=== PATIENT | male | born 1955 | race Caucasian/White ===

== ENCOUNTER 2016-08-13 16:02 | Emergency (ER) | payer OTHER ==
[~2016-08-13] VITALS: Ht 180.3 cm; Wt 113.0 kg
[~2016-08-13 16:02] MED LIST: ASPEC81 PO; ATEN-173 PO; DRV65 PO; FLX10 PO; HYDC25 PO; SERT-234 PO
[2016-08-13 16:06] VITALS: TEMP 36.8
[2016-08-13 17:00] VITALS: Ht 180.3 cm; Wt 113.0 kg
[2016-08-13 17:09] LABS: BASO % 0.5 %; BASO ABS # 0.04 K/uL (0-0.2); COMPLETE YES; EOS % 1.8 %; HEMATOCRIT 41.3 % (42-52); IG% 0.3 %; LYMPH % 17.4 %; LYMPH ABS # 1.37 K/uL (1.2-3.4); MEAN CELL VOLUME 82.3 fL (80-100); MEAN CORPUSCULAR HEMOGLOBIN 28.3 pg (25-34); MEAN CORPUSCULAR HGB CONC 34.4 g/dl (32-36); MEAN PLATELET VOLUME 10.1 fL (7.4-10.4); MONO % 6.2 %; NEUT % 73.8 %; PLATELET COUNT 247 K/uL (130-400); RED BLOOD COUNT 5.02 M/uL (4.7-6.1); WHITE BLOOD COUNT 7.86 K/uL (4.8-10.8)
[2016-08-13 17:11] VITALS: O2SAT 95
[2016-08-13 17:18] LABS: PROTHROMBIN TIME (PATIENT) 11.2 SECONDS (9.0-12.0)
[2016-08-13 17:25] LABS: URINE APPEARANCE CLEAR (CLEAR); URINE BILIRUBIN NEG (NEG); URINE COLOR YELLOW; URINE NITRITE NEG (NEG); URINE SPECIFIC GRAVITY 1.021 (1.000-1.030); UROBILINOGEN NEG (NEG)
[2016-08-13 17:26] LABS: ALT/SGPT 36 U/L (12-78); AST/SGOT 18 U/L (15-37); BLOOD UREA NITROGEN 17 mg/dl (7-18); BUN/CREATININE RATIO 14.5 (10-20); CALCIUM 8.8 mg/dl (8.5-10.1); CARBON DIOXIDE 30 mmol/L (21-32); CHLORIDE 101 mmol/L (98-107); GLUCOSE 238 mg/dl (70-99); POTASSIUM 3.5 mmol/L (3.5-5.1); SODIUM 139 mmol/L (136-145)
[2016-08-13 17:28] LABS: MANUAL MICROSCOPIC REQUIRED? NO; REVIEW REQ? NO
[2016-08-13] MEDS ORDERED: SODIUM CHLORIDE 0.9% 1000ML 1,000 ML IV STA (17:35)
[2016-08-13 17:38] LABS: ALKALINE PHOSPHATASE 110 U/L (45-117)
--- NOTE | 2016-08-13 18:06 | DIAGNOSTIC IMAGING REPORT ---
CT SCAN OF THE ABDOMEN AND PELVIS WITHOUT CONTRAST CLINICAL HISTORY: right flank pain COMPARISON STUDY: No previous studies for comparison. TECHNIQUE: CT scan of the abdomen and pelvis was performed from the lung bases to the proximal femurs. Images are reviewed in the axial, sagittal, and coronal planes. IV contrast was not administered for this examination. CT DOSE: 1704.03 mGy.cm FINDINGS: Lower chest: The heart is normal in size and configuration, without pericardial effusion. The lung bases and pleural spaces are clear. Liver: There is subtle hypodensity within the medial segment left lobe of the liver, possibly representing focal fat. Gallbladder: Not visualized and presumed surgically absent Spleen: Normal in size and attenuation. Pancreas: Unremarkable. Adrenal glands: Unremarkable. Kidneys: There is a 13 mm exophytic right renal cyst. There is no hydronephrosis. No renal or ureteral calculi are visualized. There is mild bilateral perinephric stranding. Bowel: There are no transition zones indicate bowel obstruction. The appendix is not visualized. There are no findings to indicate acute appendicitis. There is no evidence of acute diverticulitis. Peritoneum: There is no intraperitoneal free air or abdominal ascites. There is small fat-containing ventral hernias. Vasculature: The abdominal aorta is normal in course and caliber. Adenopathy: None. Pelvic viscera: The bladder, and pelvic viscera are unremarkable. Skeletal structures: No destructive osseous lesions are seen. IMPRESSION: 1. No renal, ureteral, or bladder calculi identified 2. No evidence of bowel obstruction. No evidence of free air 3. No evidence of acute diverticulitis 4. No evidence of acute appendicitis 5. Small fat-containing inguinal hernias 6. Very subtle diminished attenuation within the medial segment of the left lobe of the liver, possibly secondary to focal fat Electronically signed by: Jordan Mensah M.D. 08/13/2016 6:05 PM Dictated Date/Time: 08/13/2016 6:00 PM
[2016-08-13] MEDS ORDERED: CIPR-255 PO (18:10)
[2016-08-13] MEDS ORDERED: METF1TAB53 PO (18:10)
[2016-08-13] MEDS ORDERED: ATEN50TA8 PO (18:10)
[2016-08-13] MEDS ORDERED: CHOL2000 PO (18:10)
[2016-08-13] MEDS ORDERED: KRIL1CAP24 PO (18:10)
[2016-08-13] MEDS ORDERED: VITACAP37 PO (18:10)
[2016-08-13] MEDS ORDERED: ATOR-24 PO (18:10)
[2016-08-13] MEDS ORDERED: ALFU10TA2 PO (18:10)
[2016-08-13] MEDS ORDERED: HYDR25TA4 PO (18:11)
[2016-08-13] MEDS ORDERED: SERT-234 PO (18:11)
[2016-08-13 19:00] VITALS: PULSE 66; O2SAT 95
[2016-08-13 19:36] VITALS: BP 169/93
--- NOTE | 2016-08-13 21:50 | EMERGENCY ROOM VISIT NOTE ---
History Report prepared by Evelyne: Sid Yost Under the Supervision of: Dr. Daniel Vora M.D. First contact with patient: 16:20 Chief Complaint: HYPERGLYCEMIA Stated Complaint: SUGAR GLUCOSE IS HIGH History of Present Illness The patient is a 61 year old male who presents to the Emergency Room with complaints of hyperglycemia starting about a week ago. He also complains of diabetes. His blood sugar level had been in the 200s to 300s yesterday. The patient has been feeling fatigued and tired for the past week. He has been having increased sweatiness recently but denies any fevers or chills. He also complains of increased frequency, and increased urgency. He reports some intermittent, mild, right flank pain starting about 3 days ago. The patient had been setting some stones when he had an onset of his pain. He has a history of SI joint problems. He was evaluated by his PCP yesterday who placed him on Cipro. He had a urinalysis yesterday which showed some microscopic hematuria. He has an enlarged prostate but denies any issues. He notes actually feeling better today than previously. Pt denies LOC, headache, visual changes, neck pain, chest pain, breathing difficulties, pain with deep breathing, nausea, vomiting, melena, hematochezia, numbness, weakness, lymphadenopathy, rash, or other complaints. Source of History: patient Onset: about a week ago Position: other (global) Symptom Intensity: 200s-300s Quality: other (hyperglycemia) Associated Symptoms: + urinary symptoms Review of Systems See HPI for pertinent positives and negatives. A total of ten systems were reviewed and were otherwise negative. Past Medical & Surgical Medical Problems: (1) Diabetes (2) Hypertension Surgical Problems: (1) History of cholecystectomy Family History Cancer Gallbladder disease Hypertension Lung disease Social History Smoking Status: Never Smoker Marital Status: Occupation Status: retired Current/Historical Medications Scheduled Alfuzosin Hcl (Uroxatral), 10 MG PO DAILY Atenolol (Tenormin), 50 MG PO DAILY Atorvastatin (Lipitor), 40 MG PO DAILY Cholecalciferol (Vitamin D3), 3 CAP PO DAILY Ciprofloxacin Hcl (Cipro), 500 MG PO BID Hydrochlorothiazide (Hctz), 25 MG PO DAILY Krill Oil (Krill Oil 500 mg), 1 CAP PO DAILY Metformin Hcl (Glucophage Ext Rel), 1,000 MG PO BID Sertraline (Zoloft), 100 MG PO DAILY Vitamin E (E-400), 1 TAB PO DAILY Allergies Coded Allergies: Lisinopril (Unverified Allergy, Severe, ANGIOEDEMA, 08/13/16) Sulfa Drugs (Unverified Allergy, Unknown, HAIRY BROWN TONGUE, 08/13/16) Physical Exam Vital Signs Date Time Temp Pulse Resp B/P (MAP) Pulse Ox O2 Delivery O2 Flow Rate FiO2 08/13/16 19:36 169/93 08/13/16 19:00 66 10 95 08/13/16 18:30 57 16 98 08/13/16 18:27 61 20 162/87 98 Room Air 08/13/16 17:18 61 08/13/16 17:11 95 Room Air 08/13/16 17:10 95 Room Air 08/13/16 17:10 61 18 166/97 96 Room Air 08/13/16 16:06 36.8 73 20 144/92 94 Room Air Physical Exam GENERAL: Awake, alert, well-appearing, in no distress HENT: Normocephalic, atraumatic. Oropharynx unremarkable. EYES: Normal conjunctiva. Sclera non-icteric. NECK: Supple. No nuchal rigidity. FROM. No JVD. RESPIRATORY: Clear to auscultation. CARDIAC: Regular rate, normal rhythm. Extremities warm and well perfused. Pulses equal. ABDOMEN: Soft, non-distended. No tenderness to palpation. No rebound or guarding. No masses. RECTAL: Deferred. MUSCULOSKELETAL: Chest examination reveals no tenderness. The back is symmetrical on inspection without obvious abnormality. There is no CVA tenderness to palpation. No joint edema. LOWER EXTREMITIES: Calves are equal size bilaterally and non-tender. No edema. No discoloration. NEURO: Normal sensorium. No sensory or motor deficits noted. SKIN: No rash or jaundice noted. Medical Decision & Procedures ER Provider Diagnostic Interpretation: CT: Radiology results as stated below per my review and radiologist interpretation CT SCAN OF THE ABDOMEN AND PELVIS WITHOUT CONTRAST CLINICAL HISTORY: right flank pain COMPARISON STUDY: No previous studies for comparison. TECHNIQUE: CT scan of the abdomen and pelvis was performed from the lung bases to the proximal femurs. Images are reviewed in the axial, sagittal, and coronal planes. IV contrast was not administered for this examination. CT DOSE: 1704.03 mGy.cm FINDINGS: Lower chest: The heart is normal in size and configuration, without pericardial effusion. The lung bases and pleural spaces are clear. Liver: There is subtle hypodensity within the medial segment left lobe of the liver, possibly representing focal fat. Gallbladder: Not visualized and presumed surgically absent Spleen: Normal in size and attenuation. Pancreas: Unremarkable. Adrenal glands: Unremarkable. Kidneys: There is a 13 mm exophytic right renal cyst. There is no hydronephrosis. No renal or ureteral calculi are visualized. There is mild bilateral perinephric stranding. Bowel: There are no transition zones indicate bowel obstruction. The appendix is not visualized. There are no findings to indicate acute appendicitis. There is no evidence of acute diverticulitis. Peritoneum: There is no intraperitoneal free air or abdominal ascites. There is small fat-containing ventral hernias. Vasculature: The abdominal aorta is normal in course and caliber. Adenopathy: None. Pelvic viscera: The bladder, and pelvic viscera are unremarkable. Skeletal structures: No destructive osseous lesions are seen. IMPRESSION: 1. No renal, ureteral, or bladder calculi identified 2. No evidence of bowel obstruction. No evidence of free air 3. No evidence of acute diverticulitis 4. No evidence of acute appendicitis 5. Small fat-containing inguinal hernias 6. Very subtle diminished attenuation within the medial segment of the left lobe of the liver, possibly secondary to focal fat Electronically signed by: Jordan Mensah M.D. 08/13/2016 6:05 PM Dictated Date/Time: 08/13/2016 6:00 PM Laboratory Results 08/13/16 16:52 Red Blood Count 5.02, Mean Corpuscular Volume 82.3, Mean Corpuscular Hemoglobin 28.3, Mean Corpuscular Hemoglobin Concent 34.4, Mean Platelet Volume 10.1, Neutrophils (%) (Auto) 73.8, Lymphocytes (%) (Auto) 17.4, Monocytes (%) (Auto) 6.2, Eosinophils (%) (Auto) 1.8, Basophils (%) (Auto) 0.5, Neutrophils # (Auto) 5.80, Lymphocytes # (Auto) 1.37, Monocytes # (Auto) 0.49, Eosinophils # (Auto) 0.14, Basophils # (Auto) 0.04 08/13/16 16:52 Test 08/13/16 16:52 08/13/16 17:08 08/13/16 19:22 White Blood Count 7.86 K/uL (4.8-10.8) Red Blood Count 5.02 M/uL (4.7-6.1) Hemoglobin 14.2 g/dL (14.0-18.0) Hematocrit 41.3 % (42-52) Mean Corpuscular Volume 82.3 fL (80-100) Mean Corpuscular Hemoglobin 28.3 pg (25-34) Mean Corpuscular Hemoglobin Concent 34.4 g/dl (32-36) Platelet Count 247 K/uL (130-400) Mean Platelet Volume 10.1 fL (7.4-10.4) Neutrophils (%) (Auto) 73.8 % Lymphocytes (%) (Auto) 17.4 % Monocytes (%) (Auto) 6.2 % Eosinophils (%) (Auto) 1.8 % Basophils (%) (Auto) 0.5 % Neutrophils # (Auto) 5.80 K/uL (1.4-6.5) Lymphocytes # (Auto) 1.37 K/uL (1.2-3.4) Monocytes # (Auto) 0.49 K/uL (0.11-0.59) Eosinophils # (Auto) 0.14 K/uL (0-0.5) Basophils # (Auto) 0.04 K/uL (0-0.2) RDW Standard Deviation 40.8 fL (36.4-46.3) RDW Coefficient of Variation 13.5 % (11.5-14.5) Immature Granulocyte % (Auto) 0.3 % Immature Granulocyte # (Auto) 0.02 K/uL (0.00-0.02) Prothrombin Time 11.2 SECONDS (9.0-12.0) Prothromb Time International Ratio 1.0 (0.9-1.1) Activated Partial Thromboplast Time 26.8 SECONDS (21.0-31.0) Partial Thromboplastin Ratio 1.0 Anion Gap 8.0 mmol/L (3-11) Est Creatinine Clear Calc Drug Dose 80.5 ml/min Estimated GFR () 74.1 Estimated GFR (Non- 64.0 BUN/Creatinine Ratio 14.5 (10-20) Calcium Level 8.8 mg/dl (8.5-10.1) Magnesium Level 2.0 mg/dl (1.8-2.4) Total Bilirubin 0.8 mg/dl (0.2-1) Direct Bilirubin 0.2 mg/dl (0-0.2) Aspartate Amino Transf (AST/SGOT) 18 U/L (15-37) Alanine Aminotransferase (ALT/SGPT) 36 U/L (12-78) Alkaline Phosphatase 110 U/L (45-117) Troponin I < 0.015 ng/ml (0-0.045) Total Protein 7.8 gm/dl (6.4-8.2) Albumin 3.9 gm/dl (3.4-5.0) Lipase 114 U/L (73-393) Thyroid Stimulating Hormone (TSH) 3.890 uIu/ml (0.300-4.500) Urine Color YELLOW Urine Appearance CLEAR (CLEAR) Urine pH 7.0 (4.5-7.5) Urine Specific Weaver 1.021 (1.000-1.030) Urine Protein TRACE (NEG) Urine Glucose (UA) 1+ (NEG) Urine Ketones NEG (NEG) Urine Occult Blood NEG (NEG) Urine Nitrite NEG (NEG) Urine Bilirubin NEG (NEG) Urine Urobilinogen NEG (NEG) Urine Leukocyte Esterase NEG (NEG) Urine WBC (Auto) 1-5 /hpf (0-5) Urine RBC (Auto) 0-4 /hpf (0-4) Urine Hyaline Casts (Auto) 0 /lpf (0-5) Urine Epithelial Cells (Auto) 10-20 /lpf (0-5) Urine Bacteria (Auto) NEG (NEG) Bedside Glucose 204 mg/dl (70-99) Laboratory results reviewed by me Medications Administered Medications (Trade) Dose Ordered Sig/Chi Route Start Time Stop Time Status Last Admin Dose Admin Sodium Chloride 1,000 ml @ 999 mls/hr Q1H1M STAT IV 08/13/16 17:35 08/13/16 18:35 DC 08/13/16 17:35 999 MLS/HR ECG Indication: other (Hyperglycemia) Rate (beats per minute): 68 Rhythm: normal sinus Findings: no acute ischemic change, no ectopy ED Course 1620: The patient was evaluated in room C03. A complete history and physical exam was performed. Medication Reconciliation: I attest that I have personally reviewed the patient' s current medication list Blood pressure screening: Patient was found to have an elevated blood pressure and was referred to their primary doctor for recheck and further treatment. 1735: Sodium Chloride 1000 ml @ 999 mls/hr IV 1909: I reevaluated the patient. Discussed results and discharge instructions: He verbalized understanding and agreement. The patient is ready for discharge. Medical Decision Triage Nursing notes reviewed. The patient's presentation and history were concerning for hyperglycemia and urinary symptoms. Etiologies such as metabolic, infection, hypo/hyperglycemia, electrolyte abnormalities, cardiac sources, intracerebral event, toxicologic, neurologic, as well as others were entertained. The patient was evaluated. Clinically he looked well. He had a benign abdomen. He did note some flank pain and urinary symptoms. Given the symptoms a CT scan was ordered to evaluate for kidney stone or other pathology. This was negative. He did have hernias noted incidentally. The patient was counseled on this. His CBC, chemistry panel, LFTs, lipase and urinalysis were unremarkable except for mild hyperglycemia. The patient has been started on Cipro. He states that he is feeling better. The patient was hydrated and counseled on diabetic diet. As he is improving on the Cipro I will continue this and have him follow-up closely as an outpatient. This may be a resolving UTI or prostatitis. The patient has a prescription for 10 days of Cipro. If he worsens in any way he will be back. I gave my usual and customary discussion regarding this issue. Impression Primary Impression: Hyperglycemia Scribe Attestation The scribe's documentation has been prepared under my direction and personally reviewed by me in its entirety. I confirm that the note above accurately reflects all work, treatment, procedures, and medical decision making performed by me. Departure Information Dispostion Home / Self-Care Referrals Liset Santa (PCP) Bernardo Ulrich MD Forms HOME CARE DOCUMENTATION FORM, IMPORTANT VISIT INFORMATION, WORK / SCHOOL INSTRUCTIONS Patient Instructions My [facility] Additional Instructions Ciprofloxacin(Cipro) 500mg: Take one pill twice daily as prescribed. All antibiotics can cause diarrhea. If this occurs and you feel worse or it does not resolve in 1-2 days follow up with your doctor or return to the Emergency Department as this could be signs of serious underlying problems. If you experience any pain in your tendons or any tendon injury return to the ER for re -evaluation. Any medication can cause an allergic reaction, stop the pills immediately and return to the ER for rash, hives, breathing difficulties, or swelling. Ibuprofen(Motrin, Advil) may be used for fever or pain. Use 600mg every six hours as needed. Take with food. Avoid using more than 2400mg in a 24 hour period. Do not use 2400mg per day for more than three consecutive days without physician direction. Prolonged inappropriate use can lead to stomach upset or ulcers. (AND/OR) Acetaminophen(Tylenol) may be used for fever or pain. Use 1000mg every six hours as needed. Avoid using more than 4000mg in a 24 hour period. Rest and drink plenty of fluids. Continue current medications. Return to the ER immediately for worsening or persistent abdominal pain, vomiting, fevers, back or flank pain, worsening of your condition, or as needed. Follow up with your primary physician within 3 days for a recheck of the current condition.
== END 2016-08-13 19:42 | disposition home or self-care (01) ==
LOC: C.EDB 16:04 → C.EDC 19:42
DX: E11.65 Type 2 diabetes mellitus with hyperglycemia (principal); I10 Essential (primary) hypertension; Z80.9 Family history of malignant neoplasm, unspecified; Z82.49 Family history of ischemic heart disease and other diseases of the circulatory system; Z83.6 Family history of other diseases of the respiratory system; Z83.79 Family history of other diseases of the digestive system; Z79.899 Other long term (current) drug therapy

== ENCOUNTER → 2017-06-13 | Outpatient (CLI) | payer OTHER ==
[~2017-06-13] MED LIST changes: +ALFU10TA2 PO; -ASPEC81 PO; -ATEN-173 PO; +ATEN50TA8 PO; +ATOR-24 PO; +CHOL2000 PO; +CIPR-255 PO; -DRV65 PO; -FLX10 PO; -HYDC25 PO; +HYDR25TA4 PO; +KRIL1CAP24 PO; +METF1TAB53 PO; +VITACAP37 PO
--- NOTE | 2017-06-13 19:02 | DIAGNOSTIC IMAGING REPORT ---
LEFT WRIST 5 VIEWS CLINICAL HISTORY: Recent fall. Left wrist pain. FINDINGS: 5 views of the left wrist are obtained. No prior studies are available for comparison at the time of dictation. The skeletal structures are well mineralized. No fracture is clearly identified. The joint spaces of the wrist appear maintained. Soft tissue edema is present around the wrist. IMPRESSION: Soft tissue swelling with no clear radiographic evidence of acute fracture. If there is clinical concern for occult fracture then short-term radiographic follow-up should be obtained. Electronically signed by: Bello Marquis M.D. 06/13/2017 7:01 PM Dictated Date/Time: 06/13/2017 6:59 PM
== END | disposition home or self-care (01) ==
LOC: C.RAD 18:31
PROVIDERS: ATTEND Family Medicine
DX: M25.532 Pain in left wrist (principal); W19.XXXA Unspecified fall, initial encounter

== ENCOUNTER 2024-02-24 22:51 | Observation (INO) ==
[2024-02-24] MEDS: METOPROLOL TARTRATE 1 MG/ML VIAL IV ONE (23:06)
[2024-02-24] MEDS: METOPROLOL TARTRATE 1 MG/ML VIAL IV STA ×2 (23:06→23:34)
[2024-02-24 23:19] LABS: Basophils # (auto) 0.07 K/uL (0.00-0.20); Basophils % (auto) 0.6 %; Eosinophils # (auto) 0.07 K/uL (0.00-0.50); Eosinophils % (auto) 0.6 %; Hematocrit (blood only) 45.8 % (42.0-52.0); Hemoglobin 15.3 g/dl (14.0-18.0); Immature Granulocytes # (auto) 0.04 K/uL (0.01-0.20); Immature Granulocytes % (auto) 0.3 %; Lymphocytes # (auto) 1.57 K/uL (1.20-3.40); Lymphocytes % (auto) 13.2 %; Mean Corpuscular Hemoglobin 27.7 pg (25.0-34.0); Mean Corpuscular Hgb Conc 33.4 g/dL (32.0-36.0); Mean Platelet Volume 9.8 fL (9.4-12.4); Monocytes % (auto) 6.7 %; Neutrophils # (auto) 9.38 K/uL (1.40-6.50); Neutrophils % (auto) 78.6 %; Platelet Count 326 K/uL (130-400); RDW Coefficient of Variation 14.2 % (11.5-14.5); RDW Standard Deviation 42.5 fL (36.4-46.3); Red Blood Count 5.52 M/uL (4.70-6.10); White Blood Count 11.93 K/ul (4.8-10.8)
[2024-02-24] MEDS: MAGNESIUM SULFATE / D5W 1 GM/100 ML BAG IV STA (23:37)
[2024-02-24] MEDS: SODIUM CHLORIDE 0.9% 500 ML IV ONE (23:37)
[2024-02-24 23:42] LABS: Albumin Globulin Ratio 1.3 (0.9-2); Albumin Level 4.2 gm/dl (3.4-5.0); BUN Creatinine Ratio 12.9 (10-20); Bilirubin,Total 0.9 mg/dl (0.2-1.0); Calcium 9.5 mg/dl (8.6-10.3); Creatinine Clr Calc Pharmacy 59.4 ml/min; Globulin 3.2 gm/dl (2.5-4.0); Magnesium 1.9 mg/dl (1.7-2.4); Total Protein 7.4 gm/dl (6.0-8.3); Troponin I High Sensitivity 172.9 pg/ml (0-20)
[2024-02-24 23:43] LABS: Partial Thromboplastin Time 27 Seconds (21-31); Prothrombin Time 10.9 Seconds (9.0-12.0)
--- NOTE | 2024-02-24 23:49 | Emergency Department Note ---
Impression & Plan Atrial fibrillation with rapid ventricular response, Hyperglycemia, Palpitations, Elevated troponin ED Provider Note ED Provider Note NAME: RICCARDO BERRY AGE:68 SEX: Male : 1955 ARRIVES VIA: Private vehicle INFORMANT: Patient ED PROVIDER(s): Urmila Barreto DO CHIEF COMPLAINT: Palpitations HPI: This is a 68-year-old man who presents emergency department complaining of palpitations. Patient states he believes they started yesterday as he was more tired compared to normal although was not told this morning that he felt a sense of racing heart. He denies any coming chest pain or pressure. He denies shortness of breath. He states he was lightheaded. He states he began checking his heart rate and blood pressure at home and they were very "erratic". He denies any recent fevers, chills, or URI symptoms. No recent change in medications. He does state he ran out of his atenolol 4 days ago as there was a complication getting it from his pharmacy. He states he has been on atenolol since he was around 47 years old for high blood pressure. No prior history of irregular heartbeat or any need for prior cardiac evaluation. He denies any recent change in urine or stools, no recent leg swelling, no change in diet or abdominal pain. He states he does not use alcohol. He does take aspirin daily. PAST MEDICAL HISTORY:See Below PAST SURGICAL HISTORY:See Below FAMILY HISTORY:See Below SOCIAL HISTORY:See Below HOME MEDICATIONS:See Below ALLERGIES:See Below VITALS:See Below PHYSICAL EXAMINATION: GENERAL: alert, well appearing, well nourished, no distress, non-toxic EYE EXAM: normal conjunctiva, PERRL and EOM's grossly intact OROPHARYNX: no exudate, no erythema, lips, buccal mucosa, and tongue normal and mucous membranes are moist NECK: supple, no nuchal rigidity, no adenopathy, non-tender LUNGS: Clear to auscultation. Normal chest wall mechanics, no w/r/r HEART: no murmurs, S1 normal and S2 normal ABDOMEN: abdomen soft, non-tender, normo-active bowel sounds, no masses, no rebound or guarding. SKIN: no rashes, petechiae, orbruising UPPER EXTREMITIES: upper extremities are grossly normal. FROM, nml pulses b/l. LOWER EXTREMITIES: No pitting edema. FROM, nml pulses b/l. NEURO EXAM: Normal sensorium, cranial nerves II-XII grossly intact, normal speech, no facial droop,nogross weakness of arms, no gross weakness of legs. Gross sensation intact. No ataxia. Vital Signs: reviewed and remarkable Differential Diagnosis: Dysrhythmia, PVCs, PACs, electrolyte abnormality, thyroid storm, ACS, PE, dehydration, anxiety, medication ADR, occult infection, as well as others were considered MEDICAL DECISION MAKING: This is a 68-year-old male presents emergency room due to concern for palpitations, fatigue, and lightheadedness. Upon arrival patient found to be tachycardic. Other vital signs stable and patient afebrile. Labs drawn and sent, IV established, EKG and chest ray performed at bedside interpreted by me. Patient found to be in A-fib with RVR. He was given 1 dose of IV metoprolol and started on IV fluids. IV magnesium added. Patient converted to a normal sinus rhythm, repeat EKG confirmed and reassuring as previously noted ST changes had resolved and were likely rate related from demand. Unclear how much of this may have been due to patient not taking his normal atenolol over the last 4 days. No other obvious infection, electrolyte abnormality, anemia. Hyperglycemia noted, no evidence for DKA. Patient's creatinine noted to be mildly elevated compared to prior however this was several years old on review of EMR. Patient noted to have an elevated troponin. This is likely secondary to the elevated heart rate and increased demand from the A-fib with RVR today, patient has an elevated [id number] 2 score due to other comorbidities. Patient's symptoms did resolve with return to normal sinus rhythm here. We discussed all results at bedside as well as risk given age and comorbidities. Case discussed with the hospitalist team for additional evaluation and management. Anticoagulation deferred to them pending further evaluation. Consultation(s): 0042: Discussed with Dr. Hernandez, [facility] hospitalist team, for additional evaluation and management. ER Treatment Provided: See below Diagnostics Interpreted By Me: -ECG: Atrial fibrillation at a rate of 164, normal axis, normal intervals, ST depression noted in leads I, 2, 3, aVF, V3 through V6 EKG #2 normal sinus at 88, normal axis, normal intervals, no acute ST/T wave changes -Cardiac Monitoring: An order was placed for continuous cardiac monitoring. The monitor shows a rate of 126 with a.fib rhythm. -Laboratory studies: As stated above and show below. -Imaging studies: X-ray Chest: A single view study of the chest was reviewed and was negative for cardiomegaly, focal infiltrate, effusion, pulmonary edema, or wide mediastinum. Triage Nursing Note Reviewed Prior/Outside Records Reviewed Past Med/Surg History Problem List (Updated 02/25/24 @ 04:25 by Jarrod Mckee DO) Acute kidney injury Elevated troponin (Acute) Palpitations (Acute) Hyperglycemia (Acute) Atrial fibrillation with rapid ventricular response (Acute) Urinary urgency BPH (benign prostatic hyperplasia) Right inguinal hernia Arthritis Right groin pain Diabetes (Chronic) Hypertension (Chronic) Hyperglycemia (Acute) Surgical History (Updated 12/01/21 @ 16:05 by Livier Flores RN) Status post Mohs surgery for basal cell carcinoma 1999 Carpal tunnel syndrome 2001 History of laparoscopic cholecystectomy 1977 Family History (Updated 12/01/21 @ 16:01 by Livier Flores RN) Mother Hypertension Father No problems noted. Social History (Updated 12/01/21 @ 15:33 by Livier Flores RN) Smoking Status: Never smoker Preferred Language: Tuvaluan marital status: / current occupational status: retired How many Children do You have: 1 Feels Safe at Home: Yes Diet: diabetic during the past year weight has: decreased > 10 lbs Allergies Allergies Allergy/AdvReac Type Severity Reaction Status Date / Time lisinopril Allergy Severe ANGIOEDEMA Unverified 01/30/24 13:05 Sulfa (Sulfonamide Allergy Unknown HAIRY Unverified 01/30/24 13:05 Antibiotics) BROWN TONGUE Home Meds Home Medications Medication Instructions Recorded Confirmed alfuzosin 10 mg tablet,extended 10 mg PO PM 04/20/18 02/25/24 release 24 hr (Uroxatral) atenolol 50 mg tablet (Tenormin) 50 mg PO QAM 04/20/18 02/25/24 glipizide 10 mg tablet, extended 10 mg PO BID 04/20/18 02/25/24 release 24 hr (Glucotrol XL) sertraline 100 mg tablet (Zoloft) 100 mg PO DAILY 04/20/18 02/25/24 amlodipine 5 mg tablet 2.5 mg PO BID 03/28/23 02/25/24 empagliflozin 10 mg tablet 10 mg PO DAILY 03/28/23 02/25/24 (Jardiance) gabapentin 100 mg capsule 100 mg PO BID 03/28/23 02/25/24 pravastatin 10 mg tablet 10 mg PO PM 03/28/23 02/25/24 aspirin 81 mg chewable tablet 81 mg PO DAILY 02/25/24 02/25/24 cholecalciferol (vitamin D3) 1,250 50,000 unit PO WK 02/25/24 02/25/24 mcg (50,000 unit) capsule losartan 50 mg tablet 50 mg PO DIRECTED 02/25/24 02/25/24 metformin 750 mg tablet,extended 750 mg PO BID 02/25/24 02/25/24 release 24 hr Results & Data (ED) Vital Signs Vital Signs - 24 hr 02/24/24 22:52 02/24/24 22:53 02/24/24 23:01 Temperature 36.0 C L Temperature Source Temporal Artery Scan Pulse Rate 166 H Pulse Rate from SpO2 Sensor Pulse Rhythm Regular Respiratory Rate 15 Respiratory Effort / Characteristics Non-Labored Non-Labored Respiratory Depth Normal Normal Blood Pressure 127/78 119/92 Blood Pressure Mean 94 97 Pulse Oximetry 95 Oxygen Delivery Method Room Air Sepsis Recent Fever Within 48 Hours No Sepsis New/Unexplained Change in Mental Status No Sepsis Action Taken by Nursing No Action Required 02/24/24 23:01 02/24/24 23:01 02/24/24 23:02 Temperature Temperature Source Pulse Rate Pulse Rate from SpO2 Sensor Pulse Rhythm Respiratory Rate Respiratory Effort / Characteristics Respiratory Depth Blood Pressure 119/92 119/92 Blood Pressure Mean 97 97 Pulse Oximetry Oxygen Delivery Method Room Air Sepsis Recent Fever Within 48 Hours Sepsis New/Unexplained Change in Mental Status Sepsis Action Taken by Nursing 02/24/24 23:02 02/24/24 23:03 02/24/24 23:06 Temperature Temperature Source Pulse Rate 154 H 165 H 164 H Pulse Rate from SpO2 Sensor 160 H Pulse Rhythm Respiratory Rate 21 Respiratory Effort / Characteristics Respiratory Depth Blood Pressure 119/92 Blood Pressure Mean Pulse Oximetry 96 Oxygen Delivery Method Sepsis Recent Fever Within 48 Hours Sepsis New/Unexplained Change in Mental Status Sepsis Action Taken by Nursing 02/24/24 23:06 02/24/24 23:07 02/24/24 23:07 Temperature Temperature Source Pulse Rate 158 H Pulse Rate from SpO2 Sensor 160 H Pulse Rhythm Respiratory Rate 23 Respiratory Effort / Characteristics Respiratory Depth Blood Pressure 113/92 113/92 Blood Pressure Mean 104 104 Pulse Oximetry 95 Oxygen Delivery Method Sepsis Recent Fever Within 48 Hours Sepsis New/Unexplained Change in Mental Status Sepsis Action Taken by Nursing 02/24/24 23:07 02/24/24 23:07 02/24/24 23:18 Temperature Temperature Source Pulse Rate 169 H 159 H Pulse Rate from SpO2 Sensor 88 Pulse Rhythm Respiratory Rate 21 Respiratory Effort / Characteristics Respiratory Depth Blood Pressure 113/92 Blood Pressure Mean 104 Pulse Oximetry 94 Oxygen Delivery Method Sepsis Recent Fever Within 48 Hours Sepsis New/Unexplained Change in Mental Status Sepsis Action Taken by Nursing 02/24/24 23:21 02/24/24 23:30 02/24/24 23:31 Temperature Temperature Source Pulse Rate 134 H 89 91 H Pulse Rate from SpO2 Sensor 98 H 87 Pulse Rhythm Respiratory Rate 24 23 Respiratory Effort / Characteristics Respiratory Depth Blood Pressure Blood Pressure Mean Pulse Oximetry 93 94 Oxygen Delivery Method Sepsis Recent Fever Within 48 Hours Sepsis New/Unexplained Change in Mental Status Sepsis Action Taken by Nursing 02/24/24 23:34 02/24/24 23:45 02/25/24 00:09 Temperature Temperature Source Pulse Rate 89 86 86 Pulse Rate from SpO2 Sensor 86 85 Pulse Rhythm Respiratory Rate 21 24 Respiratory Effort / Characteristics Respiratory Depth Blood Pressure 113/92 Blood Pressure Mean Pulse Oximetry 98 99 Oxygen Delivery Method Sepsis Recent Fever Within 48 Hours Sepsis New/Unexplained Change in Mental Status Sepsis Action Taken by Nursing 02/25/24 00:12 02/25/24 00:33 02/25/24 00:52 Temperature Temperature Source Pulse Rate 88 85 Pulse Rate from SpO2 Sensor 87 86 Pulse Rhythm Respiratory Rate 23 18 Respiratory Effort / Characteristics Non-Labored Respiratory Depth Normal Blood Pressure Blood Pressure Mean Pulse Oximetry 99 98 Oxygen Delivery Method Sepsis Recent Fever Within 48 Hours Sepsis New/Unexplained Change in Mental Status Sepsis Action Taken by Nursing 02/25/24 00:54 02/25/24 01:00 02/25/24 01:12 Temperature Temperature Source Pulse Rate 90 81 83 Pulse Rate from SpO2 Sensor 89 81 84 Pulse Rhythm Respiratory Rate 16 19 21 Respiratory Effort / Characteristics Respiratory Depth Blood Pressure Blood Pressure Mean Pulse Oximetry 97 97 97 Oxygen Delivery Method Sepsis Recent Fever Within 48 Hours Sepsis New/Unexplained Change in Mental Status Sepsis Action Taken by Nursing 02/25/24 01:15 02/25/24 01:33 02/25/24 02:00 Temperature Temperature Source Pulse Rate 84 76 Pulse Rate from SpO2 Sensor 77 Pulse Rhythm Respiratory Rate 22 Respiratory Effort / Characteristics Non-Labored Respiratory Depth Normal Blood Pressure 113/92 Blood Pressure Mean Pulse Oximetry 97 Oxygen Delivery Method Sepsis Recent Fever Within 48 Hours Sepsis New/Unexplained Change in Mental Status Sepsis Action Taken by Nursing 02/25/24 02:03 Temperature Temperature Source Pulse Rate 70 Pulse Rate from SpO2 Sensor 70 Pulse Rhythm Respiratory Rate 15 Respiratory Effort / Characteristics Respiratory Depth Blood Pressure Blood Pressure Mean Pulse Oximetry 95 Oxygen Delivery Method Sepsis Recent Fever Within 48 Hours Sepsis New/Unexplained Change in Mental Status Sepsis Action Taken by Nursing Laboratory Data 02/24/24 23:05 02/24/24 23:05 Lab Results 02/24/24 02/25/24 02/25/24 Range/Units 23:05 01:07 01:38 WBC 11.93 H (4.8-10.8) K/ul RBC 5.52 (4.70-6.10) M/uL Hgb 15.3 (14.0-18.0) g/dl Hct 45.8 (42.0-52.0) % MCV 83.0 (80.0-100.0) fL MCH 27.7 (25.0-34.0) pg MCHC 33.4 (32.0-36.0) g/dL RDW Std Deviation 42.5 (36.4-46.3) fL RDW Coeff of Iván 14.2 (11.5-14.5) % Plt Count 326 (130-400) K/uL MPV 9.8 (9.4-12.4) fL Immature Gran % (Auto) 0.3 % Neut % (Auto) 78.6 % Lymph % (Auto) 13.2 % [place] % (Auto) 6.7 % Eos % (Auto) 0.6 % Baso % (Auto) 0.6 % Neut # (Auto) 9.38 H (1.40-6.50) K/uL Lymph # (Auto) 1.57 (1.20-3.40) K/uL [place] # (Auto) 0.80 H (0.11-0.59) K/uL Eos # (Auto) 0.07 (0.00-0.50) K/uL Baso # (Auto) 0.07 (0.00-0.20) K/uL Immature Gran # (Auto) 0.04 (0.01-0.20) K/uL PT 10.9 (9.0-12.0) Seconds INR 1.0 (0.9-1.1) APTT 27 (21-31) Seconds PTT Ratio 1.0 Sodium 141 (136-145) mmol/L Potassium 4.0 (3.5-5.1) mmol/L Chloride 103 (98-107) mmol/L Carbon Dioxide 26 (21-32) mmol/L Anion Gap 12 H (3-11) BUN 19 (6-23) mg/dl Creatinine 1.47 H (0.6-1.4) mg/dl Est Cr Clr Drug Dosing 59.4 ml/min eGFR 51.00 BUN/Creatinine Ratio 12.9 (10-20) Glucose 305 H* (70-99(Fasting)) mg/dl POC Glucose 181 H (70-99) mg/dl Calcium 9.5 (8.6-10.3) mg/dl Magnesium 1.9 (1.7-2.4) mg/dl Total Bilirubin 0.9 (0.2-1.0) mg/dl AST 18 (13-39) U/L ALT 20 (7-52) U/L Alkaline Phosphatase 98 (34-104) U/L Troponin I High Sens 172.9 H* 315.1 H* D (0-20) pg/ml Total Protein 7.4 (6.0-8.3) gm/dl Albumin 4.2 (3.4-5.0) gm/dl Globulin 3.2 (2.5-4.0) gm/dl Albumin/Globulin Ratio 1.3 (0.9-2) TSH 4.054 (0.300-4.500) uIu/ml Lyme Disease Screen Negative (Negative) Administered Medications Sodium Chloride (Nss) 1,000 mls @ 100 mls/hr IV .Q10H KINGSLEY Stop: 02/25/24 12:14 Last Admin: 02/25/24 04:21 Dose: 100 mls/hr Documented By: HDC Discontinued Medications Sodium Chloride (Nss) 500 mls @ 999 mls/hr IV .Q31M ONE Stop: 02/24/24 23:56 Last Infusion: 02/25/24 01:15 Dose: Infused Documented By: Admin: 02/24/24 23:37 Dose: 999 mls/hr Documented By: DEMETRIA Magnesium Sulfate/Dextrose (Magnesium Sulfate / D5w) 1 gm in 100 mls @ 100 mls/hr IV NOW STA Stop: 02/25/24 00:25 Last Infusion: 02/25/24 01:15 Dose: Infused Documented By: Admin: 02/24/24 23:37 Dose: 100 mls/hr Documented By: DEMETRIA Insulin Human Regular (Novolin-R Insulin Per Unit Charge) 4 units IV NOW STA Stop: 02/25/24 00:22 Last Admin: 02/25/24 00:35 Dose: 4 units Documented By: DEMETRIA Co-signed By: JORGE Metoprolol Tartrate (Metoprolol Tartrate 1 Mg/Ml Vial) 5 mg IV NOW STA Stop: 02/24/24 23:04 Last Admin: 02/24/24 23:06 Dose: 5 mg Documented By: DEMETRIA Metoprolol Tartrate (Metoprolol Tartrate 1 Mg/Ml Vial) Confirm Administered Dose 5 mg IV .STK-MED ONE Stop: 02/24/24 23:04 Last Admin: 02/24/24 23:06 Dose: Not Given Documented By: DEMETRIA Metoprolol Tartrate (Metoprolol Tartrate 1 Mg/Ml Vial) 5 mg IV NOW STA Stop: 02/24/24 23:27 Last Admin: 02/24/24 23:34 Dose: Not Given Documented By: DEMETRIA Discharge Plan Visit Data Chief Complaint: Tachycardia Stated Complaint: RAPID HEART RATE, DIZINESS, SWEATING ED Provider: Urmila Barreto Discharge Problem: Atrial fibrillation with rapid ventricular response, Hyperglycemia, Palpitations, Elevated troponin Patient Disposition: Admitted As Inpatient Discharge Instructions Interventions: ED Discharge Assessment Last Done: 02/25/24 02:33
[2024-02-24 23:50] LABS: Thyroid Stimulating Hormone 4.054 uIu/ml (0.300-4.500)
[2024-02-25] MEDS: NovoLIN-R INSULIN PER UNIT CHARGE IV STA (00:35)
--- NOTE | 2024-02-25 00:58 | History & Physical Report ---
Date of Service February 25, 2024 Assessment & Plan (1) Atrial fibrillation with rapid ventricular response: (2) Elevated troponin: (3) Hyperglycemia: (4) Acute kidney injury: (5) Diabetes: Plan Jamshid is a 68M w/ PMH of T2DM, HTN, HLD, Depression, Anxiety, BPH, Hypothyroidism who presented to the emergency department 02/24/24 and was found to be in atrial fibrillation with RVR, patient was admitted 02/25/24 for further inpatient management. New Onset AFib/AFlutter - Symptomatic AFib/Flutter on presentation, resolved w/ IV Lopressor 5 mg Repeat EKG in NSR w/o acute ST or T wave changes - Likely provoked by missed Atenolol doses vs dehydration Restart home Atenolol 50 mg qAM (noted to be for BP control outpatient) May benefit from change to Metoprolol S/p 500 cc bolus NSS, continue NSS @ 100 ml/hr x 1 bag - CXR ordered - Echocardiogram ordered - CHADVASC 3, recommending anticoagulation Discussed risk & benefits w/ patient Agreeable to start Eliquis BID in AM Elevated Troponin w/o Chest Pain - Troponin elevated 172 on presentation, 2 hour repeat 315 - Presenting EKG w/ A Fib/Flutter RVR, repeat EKG w/o acute ST/T wave changes - Hemodynamically stable on room air - Suspect demand ischemia 2/2 acute onset AFib RVR - No hx of CAD though multiple risks (DM, HLD, HTN) Continue to trend troponin Q4h Repeat EKG for chest pain or rhythm changes - Consider Cardiology consultation for persistent rising troponin or abnormal Echo Need for PCI not anticipated at this time 0600 Troponin rising w/ significant delta, EKG ordered, patient remains asymptomatic. Will hold Eliquis and start Heparin drip. Acute Kidney Injury - Baseline 1.15-1.17, presenting 1.47 - Suspect dehydration component, patient w/ dry mucous membranes S/p 500 cc bolus NSS, continue NSS @ 100 ml/hr x 1 bag - Follow BUN/Cr/GFR Type 2 DM, Hyperglycemia - Hyperglycemic to 300s on presentation - Home medications (Metformin, Jardiance, Glipizide) held - BSG checks ACHS w/ SSI inpatient - AM A1c ordered, last documented 9.4 on 12/02/23 Chronic conditions: - Continue home medications unless otherwise specified above Diet: HH, DM2 Code: Full IVF: NSS @ 100 DVT: Jody in AM Dispo: Med/tele History of Present Illness Primary Care Provider: Kailyn Donovan MD Jamshid is a 68M w/ PMH of T2DM, HTN, HLD, Depression, Anxiety, BPH, Hypothyroidism who presented to the emergency department 02/24/24 and was found to be in atrial fibrillation with RVR, patient was admitted 02/25/24 for further inpatient management. Patient notes that he has felt 'off' for the last 4 days and has been more tired than usual. He presented to the ER tonight after having an episode of palpitations and sweating. He has been unable to obtain his normal dose of Atenolol 50 mg PO (due to having to change pharmacies and the weather today) for 4 days. Patient notes that he has never had an episode of AFib/AFlutter before, has no history of CAD, and has never followed w/ Cardiology. He notes a history of anxiety attacks which started out as similar to this, but states this episode was much more profound than previous anxiety events. Patient denies chest pain or dyspnea, he is not feeling LH or dizzy. He is known to have chronic lower extremity edema that happens intermittently but resolves with leg elevation overnight. Patient denies recent URI symptoms, but notes that he has felt more 'dry' over the last week and has tried to increase his water intake. Patient is independent of ADLs at baseline and has noted no change in activity, he states that he climbs multiple flights of stairs daily w/o dyspnea or chest discomfort. Patient notes that he has also struggled to obtain his DM medications over the last 6 months, due to national shortages, he has been off Trulicity. He is now managed with Metformin, Glipizide, and Jardiance only. Home glucose averages have been 120-160. Allergies Allergy/AdvReac Type Severity Reaction Status Date / Time lisinopril Allergy Severe ANGIOEDEMA Unverified 01/30/24 13:05 Sulfa (Sulfonamide Allergy Unknown HAIRY Unverified 01/30/24 13:05 Antibiotics) BROWN TONGUE Home Medications Medication Instructions Recorded Confirmed Type alfuzosin 10 mg tablet,extended 10 mg PO PM 04/20/18 02/25/24 History release 24 hr (Uroxatral) atenolol 50 mg tablet (Tenormin) 50 mg PO QAM 04/20/18 02/25/24 History glipizide 10 mg tablet, extended 10 mg PO BID 04/20/18 02/25/24 History release 24 hr (Glucotrol XL) sertraline 100 mg tablet (Zoloft) 100 mg PO DAILY 04/20/18 02/25/24 History amlodipine 5 mg tablet 2.5 mg PO BID 03/28/23 02/25/24 History empagliflozin 10 mg tablet 10 mg PO DAILY 03/28/23 02/25/24 History (Jardiance) gabapentin 100 mg capsule 100 mg PO BID 03/28/23 02/25/24 History pravastatin 10 mg tablet 10 mg PO PM 03/28/23 02/25/24 History aspirin 81 mg chewable tablet 81 mg PO DAILY 02/25/24 02/25/24 History cholecalciferol (vitamin D3) 1,250 50,000 unit PO WK 02/25/24 02/25/24 History mcg (50,000 unit) capsule losartan 50 mg tablet 50 mg PO DIRECTED 02/25/24 02/25/24 History metformin 750 mg tablet,extended 750 mg PO BID 02/25/24 02/25/24 History release 24 hr Past Med/Surg History Problem List (Updated 02/25/24 @ 04:25 by Jarrod Mckee DO) Acute kidney injury Elevated troponin (Acute) Palpitations (Acute) Hyperglycemia (Acute) Atrial fibrillation with rapid ventricular response (Acute) Urinary urgency BPH (benign prostatic hyperplasia) Right inguinal hernia Arthritis Right groin pain Diabetes (Chronic) Hypertension (Chronic) Hyperglycemia (Acute) Surgical History (Updated 12/01/21 @ 16:05 by Livier Flores RN) Status post Mohs surgery for basal cell carcinoma 2000 Carpal tunnel syndrome 2001 History of laparoscopic cholecystectomy 1976 Family History (Updated 12/01/21 @ 16:01 by Livier Flores RN) Mother Hypertension Father No problems noted. 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 Beliefs That Will Affect Care: None marital status: / Current Living Situation: Alone current occupational status: retired How many Children do You have: 1 Other Information That Helps Us Care for You: No Feels Safe at Home: Yes Safety Concerns: Feels Safe At This Time Diet: diabetic during the past year weight has: decreased > 10 lbs Assistive Devices: None Physical Exam Physical Exam: Gen: NAD, alert, interactive HEENT: Supple, no LAD, no thyromegaly, no JVD, dry mucous membranes Resp:Non-labored, no wheezing/rhonchi/rales, CTAB CV:RRR, normal S1/S2, no M/R/G Abd: Soft, non-distended, no TTP, normoactive bowels, no masses Extr: 2+ dp bilaterally, no edema Skin: Healing lacerations/sutures on scalp (s/p Mohs surgery) Results & Data Results & Data Vital Signs (Past 12 Hours) Vital Signs Temp Pulse Resp BP Pulse Ox O2 Del Method 02/24/24 23:34 89 113/92 02/24/24 23:31 91 H 02/24/24 23:21 134 H 24 93 02/24/24 23:18 159 H 21 94 02/24/24 23:07 169 H 02/24/24 23:07 113/92 02/24/24 23:07 113/92 02/24/24 23:07 113/92 02/24/24 23:06 158 H 23 95 02/24/24 23:06 164 H 119/92 02/24/24 23:03 165 H 21 96 02/24/24 23:02 154 H 02/24/24 23:02 Room Air 02/24/24 23:01 119/92 02/24/24 23:01 119/92 02/24/24 23:01 119/92 02/24/24 22:53 36.0 C L 166 H 15 127/78 95 Room Air Supervising Physician Co-Signing Physician Notes Attending addendum: I have physically seen this patient, have supervised the medical residents activities, and agree with the H&P unless as otherwise noted. Assessment and Plan: Atrial fibrillation with RVR/atrial flutter- The patient will be admitted to telemetry for serial cardiac enzymes, serial EKG's, cardiac rhythm monitoring and a 2-D echocardiogram with Dopplers. Noted this as new onset Troponin 172, with repeat 2 hours later 315, likely secondary to increased heart rate, will follow protocol Improved after Lopressor 5 mg IV x 2, NSS 500 mL bolus, and magnesium sulfate 1 g IV in the ED Patient reports having missed multiple doses of his home atenolol. Resume at appropriate interval post Lopressor IV Recommending starting anticoagulation, and will start heparin drip per protocol, and later can be converted to Eliquis Hold amlodipine to allow blood pressure be increased for negative inotropic action Consult cardiology Acute kidney injury superimposed on CKD- Creatinine 1.47, with base 1.01 Dehydration as noted Status post 500 cc normal saline bolus in the ED Maintenance fluids NSS at 100 mL/h x 1 L Recheck laboratories in the a.m. Hold losartan for now Hyperglycemia in diabetes mellitus- Glucose 305 on admission, and received regular insulin 4 units IV from the ED Hold metformin, Jardiance and glipizide Placed on Accu-Cheks with NovoLog SSI Check hemoglobin A1c, with most recent on 12/02/2023 was 9.4 Resident Activity Tracking Resident Involvement: Resident Care Provided Care Provided: Adult Hospital Medicine
[2024-02-25] MEDS ORDERED: POLYETHYLENE (MIRALAX) 17 GM PACK PO PRN (03:31)
[2024-02-25] MEDS ORDERED: CARBOHYDRATES FOR HYPOGLYCEMIA PO PRN (03:31)
[2024-02-25] MEDS ORDERED: DEXTROSE 50% 50 ML SYRINGE IV PRN (03:31)
[2024-02-25] MEDS ORDERED: GLUCAGON FOR INJ 1 MG VIAL SQ PRN (03:31)
[2024-02-25] MEDS ORDERED: ONDANSETRON INJ 2 MG/ML 2 ML VIAL IV PRN (03:31)
[2024-02-25] MEDS ORDERED: GLUCOSE 40% GEL 15 GM TUBE PO PRN (03:31)
[2024-02-25] MEDS ORDERED: GLUCOSE 10 TAB/TUBE PO PRN (03:31)
[2024-02-25] MEDS: SODIUM CHLORIDE 0.9% 1,000 ML IV SCH (04:21)
--- OUTSIDE RECORDS SUMMARY | 2024-02-25 05:19 | External Medical Summary | Continuity of Care Document ---
Author Name Unknown Organization [facility] [address] 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 Role Phone Kailyn Donovan Primary Care Physician [phone] [id number] Date(s): 02/14/24 - 02/14/24 [facility] [address] [place] [address] [phone] Encounter Diagnosis Basal cell carcinoma of scalp(Discharge Diagnosis) - 02/14/24 Discharge Disposition: Home or Self Care Attending Physician: MD Garcia Cassandra Referring Physician: CHUCHO Stratton, Nadiya Mathis Allergies, Adverse Reactions, Alerts Substance Criticality Severity Reaction Reaction Severity Status lisinopril Unable to assess criticality Severe Severe swelling Active sulfa drugs "hairy tongue" Act aron Immunizations Given and Recorded Vaccine Date Status Refusal Reason influenza virus vaccine, inactivated 12/05/23 Give n influenza virus vaccine, inactivated 12/16/22 Give n influenza virus vaccine, inactivated 12/18/21 Give n influenza virus vaccine, inactivated 12/04/19 Give n influenza virus vaccine, inactivated 11/22/18 Give n influenza virus vaccine, inactivated 11/30/17 Give n influenza virus vaccine, inactivated 11/19/16 Give n influenza virus vaccine, inactivated 11/11/15 Give n influenza virus vaccine, inactivated 01/20/15 Give n influenza virus vaccine, inactivated 01/17/14 Give n influenza virus vaccine, inactivated 11/20/12 Give n influenza virus vaccine, inactivated 12/06/11 Give n SARS-CoV-2 mRNA-1273 (6y+ bivalent) 02/05/22 Recor ded SARS-CoV-2 (COVID-19) mRNA-1273 vaccine 1 03/03/21 Recorded SARS-CoV-2 (COVID-19) mRNA-1273 vaccine 2 05/20/20 Recorded SARS-CoV-2 (COVID-19) mRNA-1273 vaccine 3 04/22/20 Recorded tetanus/diphtheria/pertuss, acel (Tdap) 08/15/20 G iven tetanus/diphtheria/pertuss, acel (Tdap) 01/07/10 R ecorded pneumococcal 23-valent vaccine 12/04/19 Given pneumococcal 23-valent vaccine 08/16/12 Given pneumococcal 13-valent vaccine 10/18/18 Given pneumococcal 13-valent vaccine 01/21/14 Given zoster vaccine live 01/21/14 Given influenza virus vaccine, H1N1 4 03/20/09 Recorded tetanus toxoids-diphtheria, Td (Adult) 5 06/26/02 Recorded 1Result Comment: 2021-04-21: Historical information-source unspecified 2Result Comment: 2021-04-21: Historical information-source unspecified 3Result Comment: 2021-04-21: Historical information-source unspecified 4Result Comment: 2021-04-21: Historical information-source unspecified 5Result Comment: 2021-04-21: Historical information-source unspecified Medications ACCU-CHEK FASTCLIX LANCET DRUM Start: 09/05/18 4:45:47 PM EDT, See Instructions, Disp# 306, Refills: 1, USE TO TEST BLOOD SUGAR THREE TIMES A DAY., [id number], USE TO TEST BLOOD SUGAR THREE TIMES A DAY. Start Date: 09/05/18 Status: Ordered Accu-Chek FastClix Lancets Start: 04/11/18 10:57:18 AM EST, See Instructions, Disp# 102 each, Refills: 5, Use to test blood sugar three times a day., Pharmacy: [facility] #[id number] Start Date: 04/11/18 Status: Ordered Accu-Chek Guide Glucose Monitor Start: 09/21/19 11:50:00 AM EDT, See Instructions, Disp# 1 each, test once daily as directed for Type 2 DM, E11.9, Pharmacy: [facility][id number] Start Date: 09/21/19 Status: Ordered ACCU-CHEK GUIDE TEST STRIP Start: 09/01/18 8:15:43 PM EDT, See Instructions, Disp# 300, Refills: 1, USE TO TEST BLOOD SUGAR THREE TIMES A DAY., Pharmacy: [facility]/pharmacy #[id number], USE TO TEST BLOOD SUGAR THREE TIMES A DAY. Start Date: 09/01/18 Status: Ordered Accu-Chek Guide Test Strips Start: 04/11/18 10:56:15 AM EST, See Instructions, Disp# 100 each, Refills: 5, Use to test blood sugar three times a day., Pharmacy: [facility]/pharmacy #[id number] Start Date: 04/11/18 Status: Ordered alfuzosin 10 mg oral tablet, extended release Start: 07/19/22 8:41:00 AM EDT, See Instructions, Disp# 90 tab, Refills: 3, TAKE 1 TABLET BY MOUTH EVERY DAY, Pharmacy: [id number] Start Date: 07/19/22 Status: Ordered amLODIPine 5 mg oral tablet Start: 06/29/23 7:55:00 AM EDT, 1 tab, PO, Daily, Disp# 90 tab, Refills: 3, Pharmacy: [id number] Start Date: 06/29/23 Status: Ordered aspirin 81 mg oral tablet Start: 11/15/11 12:59:00 PM EDT, 1 tab, PO, Daily Start Date: 11/15/11 Status: Ordered atenolol 50 mg oral tablet Start: 01/04/23 4:23:00 PM EDT, 1 tab, PO, Daily, Disp# 90 tab, Refills: 3, Pharmacy: [id number] Start Date: 01/04/23 Status: Ordered Curity Alcohol Preps 70% topical pad Start: 08/22/20 12:41:00 PM EDT, See Instructions, Disp# 100 each, Refills: 6, test BID; Dx: E11.9 Start Date: 08/22/20 Status: Ordered Dexcom Sensor Kit 4 ct Start: 04/14/23 8:23:00 PM EST, See Instructions, Disp# 1 each, Refills: 0, test once daily, Dx : E11.9, Note to Pharmacy: Dexcom 7, Pharmacy: [facility] #[id number] Start Date: 04/14/23 Status: Ordered diclofenac sodium 75 mg oral delayed release tablet Start: 01/31/24 12:39:00 PM EST, 1 tab, PO, bid, Disp# 28 tab, with food, PRN: as needed for pain, Pharmacy: [facility] Start Date: 01/31/24 Stop Date: 02/14/24 Status: Ordered gabapentin 100 mg oral capsule Start: 11/21/23 2:40:00 PM EDT, See Instructions, Disp# 270 cap, Refills: 2, TAKE ONE CAPSULE BY MOUTH 3 TIMES A DAY, Pharmacy: [facility] Start Date: 11/21/23 Status: Ordered glipiZIDE 10 mg oral tablet, extended release Start: 08/12/23 2:35:00 PM EDT, 1 tab, PO, bid, Disp# 180 tab, Refills: 3, Pharmacy: [facility] Start Date: 08/12/23 Status: Ordered hydrOXYzine hydrochloride 25 mg oral tablet Start: 05/07/22 6:30:00 PM EST, 1 tab, PO, bid, Disp# 180 tab, Refills: 3, may try half a pill, PRN: as needed for anxiety, [id number] Start Date: 05/07/22 Status: Ordered Jardiance 10 mg oral tablet Start: 06/21/23 7:50:00 AM EDT, 1 tab, PO, Daily, Disp# 30 tab, Refills: 6, Pharmacy: [facility]229 Start Date: 06/21/23 Status: Ordered ketoconazole 2% topical shampoo Start: 09/24/20 11:58:00 AM EDT, 1 appl, topical, Daily, Disp# 120 mL, Refills: 3, [id number] Start Date: 09/24/20 Status: Ordered Lac-Hydrin 5 topical lotion Start: 01/16/24 10:02:00 AM EST, 1 appl, topical, bid, Disp# 240 g, Refills: 4, apply and rub in well, Pharmacy: [facility] Start Date: 01/16/24 Stop Date: 04/10/25 Status: Ordered levothyroxine 25 mcg (0.025 mg) oral tablet Start: 04/19/23 12:53:00 PM EST, 1 tab, PO, Daily, Disp# 90 tab, Refills: 1, Pharmacy: [id number] Start Date: 04/19/23 Status: Ordered LORazepam 0.5 mg oral tablet Start: 12/05/23 12:10:00 PM EDT, 1 tab, PO, Daily, Disp# 30 tab, Refills: 3, Note to Pharmacy: PDMP verified, PRN: as needed for anxiety, Pharmacy: [id number] Start Date: 12/05/23 Status: Ordered losartan 50 mg oral tablet Start: 12/19/23 7:55:00 AM EDT, 2 tab, PO, Daily, Disp# 180 tab, Refills: 3, Pharmacy: [id number] Start Date: 12/19/23 Status: Ordered metFORMIN 750 mg oral tablet, extended release Start: 05/18/23 8:00:00 AM EDT, 1 tab, PO, bid, Disp# 180 tab, Refills: 3, Pharmacy: [facility] [employer] [id number] Start Date: 05/18/23 Status: Ordered One Touch Delica Plus (30G) Lancets Start: 08/22/20 12:40:00 PM EDT, See Instructions, Disp# 100 each, Refills: 6, test BID; Dx: E11.9 Start Date: 08/22/20 Status: Ordered One Touch Verio Flex Glucose Monitor Start: 08/22/20 12:42:00 PM EDT, See Instructions, Disp# 1 each, Refills: 0, test BID; Dx:E11.9 Start Date: 08/22/20 Status: Ordered One Touch Verio Test Strips Start: 08/22/20 12:43:00 PM EDT, See Instructions, Disp# 100 each, Refills: 6, test BID; Dx : E11.9 Start Date: 08/22/20 Status: Ordered pravastatin 10 mg oral tablet Start: 11/21/23 2:40:00 PM EDT, 1 tab, PO, Daily, Disp# 90 tab, Refills: 3, Pharmacy: [facility] Start Date: 11/21/23 Status: Ordered sertraline 100 mg oral tablet Start: 08/18/23 3:33:00 PM EDT, See Instructions, Disp# 90 tab, Refills: 3, TAKE 1 TABLET BY MOUTH EVERY DAY, Pharmacy: [facility] Start Date: 08/18/23 Status: Ordered Trulicity Pen 3 mg/0.5 mL subcutaneous solution Start: 12/07/23 7:37:00 AM EDT, See Instructions, Disp# 4 mL, Refills: 5, INJECT 3MG EVERY 7 DAYS, Pharmacy: [facility] Start Date: 12/07/23 Status: Ordered unlisted medication Start: 05/15/12 12:59:00 PM EDT, 1 capsule daily Start Date: 05/15/12 Status: Ordered Vitamin D3 1000 intl units oral capsule Start: 11/15/11 12:58:00 PM EDT, 1 cap, PO, Daily Start Date: 11/15/11 Status: Ordered Vitamin D3 1250 mcg (50,000 intl units) oral capsule Start: 01/31/24 12:41:00 PM EST, 1 cap, PO, q7days, Disp# 13 cap, Pharmacy: [facility] Start Date: 01/31/24 Stop Date: 04/30/24 Status: Ordered Mental Status 02/14/24 Barriers to Learning one year None evide nt Mandatory Health Literacy Documentation Yes Health Literacy Communication Barriers N ever Primary Language Russian Problem List Condition Confirmation Course Effective Dates Status H ealth Status Informant AK (actinic keratosis) Confirmed Active Acute allergic rhinitis Confirmed Active BCC (basal cell carcinoma) Confirmed Active Benign parotid tumor Confirmed Active BPH (benign prostatic hyperplasia) Confirmed Active Arthritis of both feet Confirmed Active Callus Confirmed Active Chronic constipation Confirmed Active Depression Confirmed Active Depression Confirmed Active Diabetes Confirmed Active Dizziness Confirmed Active Dysuria Confirmed Active Effusion, right knee Confirmed Active Emotional stress Confirmed Active FH: skin cancer Confirmed Active Pain in both feet Confirmed Active Anxiety Confirmed Active History of squamous cell carcinoma in situ of skin Confirmed Active Dyslipidemia Confirmed Active Hypertension Confirmed Active Adult hypothyroidism Confirmed Active External inguinal hernia Confirmed Active Peyronie's disease Confirmed Active Laceration of lower leg, right Confirmed Active Abnormal brain MRI Confirmed Active OA (osteoarthritis) of knee Confirmed Active Annual physical exam Confirmed Active Hernia, inguinal, right Confirmed Active Seborrheic keratosis Confirmed Active Borderline hypothyroidism Confirmed Active Schmidt's cyst of knee Confirmed Active Hallux rigidus, bilateral Confirmed Active Right trigeminal neuralgia Confirmed Active 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 Confirmed Active Urinary urgency Confirmed Active Weight disorder Confirmed Active Diagnosis Diagnosis Type Effective Dates Health Status Cl inical Service Informant Basal cell carcinoma of scalp Discharge Diagnosis 02/14/24 Procedures Procedure Date Related Diagnosis Body Site Status Mohs micrographic surgery 02/14/24 Completed Shave biopsy of skin 1 10/18/23 Co mpleted Electrodesiccation with curettage 2 04/08/23 Completed Shave biopsy 3 04/08/23 Completed Electrodesiccation with curettage 4 03/18/23 Completed Shave biopsy 5 03/18/23 Completed Diabetic retinal eye exam 6 01/07/[address] of neck 7 12/22/22 Completed Temporomandibular joint X-ray 8 02/12/22 Completed Eye examination 9 01/01/21 Complet ed Ultrasound 10 11/29/18 Completed MRA head 11 04/29/18 Completed MRI of head 12 04/29/18 Completed X-ray of wrist 13 06/13/17 Complet ed X-ray of wrist 14 06/13/17 Complet ed Diabetic retinal eye exam 15 06/02/[address] of abdomen and pelvis 16 08/13/16 Completed Eye examination 17 02/20/16 Comple travis Eye examination 18 02/17/15 Comple travis Procedure 19 05/28/14 Completed Colonoscopy 20 04/26/14 Completed Shave biopsy of skin 21 05/17/13 C ompleted carpal tunnel surgery Com pleted Cholecystectomy Completed stiches in left thumb Com pleted 11. left crown scalp lateral 2. left crown scalp medial 2left parietal scalp 3left flankt 4left posterior upper arm #2 5right cheek #1 6[facility] Impression: 1. No diabetic retinopathy 7[facility] IMPRESSION 1.1.3 cm enhancing right parotid gland lesion. As above, it's unclear whether this represents the palpable abnormality however this lesion is indeterminate and ultrasound-guided fine-needle aspiration is recommended. 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 An intraparotid Iymph node could appear similar. 2. No cervical lymphadenopathy 8Impression: No acute bony abnormality is identified. There is no TMJ dislocation. Both temporomandibular joints show normal anterior translation on the open-mouth view. Degenerative change is noted in the right TMJ. 9No diabetic retinopathy noted. 10IMPRESSION: 1. Suspected complex right knee joint effusion. 2. 3.5 x 1.3 x 3 cm complex hypoechoic abnormality along the posterior medial aspect of the right knee. This favors a complex popliteal cyst. A mass is considered less likely however a follow-up ultrasound in 3 months is recommended given apparent minimal color flow within this finding. 11[facility] Impression: 1. Unremarkable MRA of the head 12[facility] Impression: 1. No acute intracranial abnormality identified, specifically no acute or subacute infarction 2. Moderate to etensive T2/FLAIR hyperintensities about the white matter suggestive of chronic microvascular ischemic changes. 3. No abnormal intra-axial or extra-axial enhancement 13Impression: Soft tissue swelling with no clear radiographic evidence of acute fracture. 14Soft tissue swelling with no clear radiographic evidence of acute fracture. If there is clinical concern for occult fracture then short-term radiographic f/u should be obtained, 15Impression: No diabetic retinopathy 16Impression: No renal, ureteral, or bladder calculi identified. no evidence of bowel obstruction. No evidence of free aire No evidnence of acute diverticulitis. No evidence of acute appendicitis Small fat-containing inguinal hernias Very subtle diminished attenuation within the medical segment of the left lobe of the liver, possibly secondary to focal fat. 17No retinopathy 18No diabetic retinopathy, f/u in 12 months. 19cryosurgery to nose 20Impression: Non-lbeeding internal hemorrhoids. No specimens collected. Repeat colonoscopy in 10 yr for screening purposes 21left pre auricular, left jawline Social History Social History Type Response Smoking Status Never smoked cigaret emmanuelle Sex Male Sex Representation Male (finding) Dermatology Outpt Proc * RONNI Ricci Rhonda: PERFORM Event Display: Dermatology Outpt Proc Authored Date: [id number] DERMATOLOGY OUTPATIENT PROCEDURE NOTE Name: RICCARDO BERRY Patient Number: [id number] : 1955 Date of Service: 02/14/2024 _ Electronic Signature on File Electronically Reviewed/Signed by: Bety Ricci Author Signature Dt/Tm:02/14/2024 04:17 PM Electronically Reviewed/Signed by: Linda Garcia MD Cosigner Signature Dt/Tm: 02/14/2024 04:19 PM Department of Dermatology RS * MD Donovan Amy L: REVIEW MD Donovan Amy L: REVIEW, SIGN, VERIFY, MODIFY MD Garcia Cassandra: MODIFY, SIGN MD Garcia Cassandra: SIGN, PERFORM MD Garcia Cassandra: PERFORM, MODIFY MD Garcia Cassandra: MODIFY Event Display: Dermatology Outpt Proc Authored Date: Patient: RICCARDO BERRY Age: 68 years Sex: Male : 1955 Associated Diagnoses: None Author: MD Garcia Cassandra Visit Information Nurse/MA: Visit Information [facility] number: [id number] Location of surgery: [place] Number second site: [id number] Pathology accession number: [id number] Steamtable Worker: RONNI Ricci Rhonda Advanced Practice Practitioner: CHUCHO Stratton Dawn M Surgeon: MD Garcia Cassandra Referring Physician: CHUCHO Stratton Dawn M Family Physician: MD Donovan Amy L . Referral information: Referring Physician: CHUCHO Stratton Dawn M. Family physician information: Primary Care Physician: MD Donovan Amy L . Location: [place]. Health Status Allergies: Allergic Reactions (Selected) Severe Lisinopril- Severe swelling. Severity Not Documented Sulfa drugs- "hairy tongue".. Current medication: (Selected) Prescriptions Prescribed ACCU-CHEK FASTCLIX LANCET DRUM: See Instructions, USE TO TEST BLOOD SUGAR THREE TIMES A DAY., 306 unknown unit, 1 Refill(s) ACCU-CHEK GUIDE TEST STRIP: See Instructions, USE TO TEST BLOOD SUGAR THREE TIMES A DAY., 300 unknown unit, 1 Refill(s) Accu-Chek FastClix Lancets: See Instructions, Use to test blood sugar three times a day., 102 each,5 Refill(s) Accu-Chek Guide Glucose Monitor: See Instructions, test once daily as directed for Type 2 DM, E11.9, 1 each Accu-Chek Guide Test Strips: See Instructions, Use to test blood sugar three times a day., 100 each, 5 Refill(s) Curity Alcohol Preps 70% topical pad: See Instructions, test BID; Dx: E11.9, 100 each, 6 Refill(s) Dexcom Sensor Kit 4 ct: See Instructions, test once daily, Dx : E11.9, 1 each, 0 Refill(s) Jardiance 10 mg oral tablet: 1 tab, PO, Daily, 30 tab, 6 Refill(s) LORazepam 0.5 mg oral tablet: 1 tab, PO, Daily, PRN: as needed for anxiety, 30 tab, 3 Refill(s) Lac-Hydrin 5 topical lotion: 1 appl, topical, bid, for 90 day, apply and rub in well, 240 g, 4 Refill(s) One Touch Delica Plus (30G) Lancets: See Instructions, test BID; Dx: E11.9, 100 each, 6 Refill(s) One Touch Verio Flex Glucose Monitor: See Instructions, test BID; Dx:E11.9, 1 each, 0 Refill(s) One Touch Verio Test Strips: See Instructions, test BID; Dx : E11.9, 100 each, 6 Refill(s) Trulicity Pen 3 mg/0.5 mL subcutaneous solution: See Instructions, INJECT 3MG EVERY 7 DAYS, 4 mL, 5Refill(s) Vitamin D3 1250 mcg (50,000 intl units) oral capsule: 1 cap, PO, q7days, for 90 day, 13 cap alfuzosin 10 mg oral tablet, extended release: See Instructions, TAKE 1 TABLET BY MOUTH EVERY DAY, 90 tab, 3 Refill(s) amLODIPine 5 mg oral tablet: 1 tab, PO, Daily, 90 tab, 3 Refill(s) atenolol 50 mg oral tablet: 1 tab, PO, Daily, 90 tab, 3 Refill(s) diclofenac sodium 75 mg oral delayed release tablet: 1 tab, PO, bid, for 14 day, with food, PRN: asneeded for pain, 28 tab gabapentin 100 mg oral capsule: See Instructions, TAKE ONE CAPSULE BY MOUTH 3 TIMES A DAY, 270 cap,2 Refill(s) glipiZIDE 10 mg oral tablet, extended release: 1 tab, PO, bid, 180 tab, 3 Refill(s) hydrOXYzine hydrochloride 25 mg oral tablet: 1 tab, PO, bid, may try half a pill, PRN: as needed for anxiety, 180 tab, 3 Refill(s) ketoconazole 2% topical shampoo: 1 appl, topical, Daily, 120 mL, 3 Refill(s) levothyroxine 25 mcg (0.025 mg) oral tablet: 1 tab, PO, Daily, 90 tab, 1 Refill(s) losartan 50 mg oral tablet: 2 tab, PO, Daily, 180 tab, 3 Refill(s) metFORMIN 750 mg oral tablet, extended release: 1 tab, PO, bid, 180 tab, 3 Refill(s) pravastatin 10 mg oral tablet: 1 tab, PO, Daily, 90 tab, 3 Refill(s) sertraline 100 mg oral tablet: See Instructions, TAKE 1 TABLET BY MOUTH EVERY DAY, 90 tab, 3 Refill(s) Documented Medications Documented Vitamin D3 1000 intl units oral capsule: 1 cap, PO, Daily aspirin 81 mg oral tablet: 1 tab, PO, Daily unlisted medication: 1 capsule daily. 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 / SNOMED CT 521576461 / Confirmed Anxiety / SNOMED CT 79739138 / Confirmed Borderline hypothyroidism / SNOMED CT 92861519 / Confirmed Right trigeminal neuralgia / SNOMED CT 52350361 / Confirmed Abnormal brain MRI / SNOMED CT 8777623518 / Confirmed Dysuria / SNOMED CT 66728532 / Confirmed Schmidt's cyst of knee / SNOMED CT 469957490 / Confirmed Laceration of lower leg, right / SNOMED CT 6694350964 / Confirmed Emotional stress / SNOMED CT 1141966293 / Confirmed Chronic constipation / SNOMED CT 835787339 / Confirmed Dizziness / SNOMED CT 4897419314 / Confirmed OA (osteoarthritis) of knee / SNOMED CT 535532188 / Confirmed Depression / SNOMED CT 58449620 / Confirmed Urinary urgency / SNOMED CT 050496977 / Confirmed Hernia, inguinal, right / SNOMED CT 717252320 / Confirmed Peyronie's disease / SNOMED CT 5003792 / Confirmed External inguinal hernia / SNOMED CT 017131870 / Confirmed Annual physical exam / SNOMED CT 858360279 / Confirmed Acute allergic rhinitis / SNOMED CT 732433692 / Confirmed Adult hypothyroidism / SNOMED CT 47277899 / Confirmed Seborrheic keratosis / SNOMED CT 8827980938 / Confirmed Benign parotid tumor / SNOMED CT 631902525 / Confirmed Effusion, right knee / SNOMED CT 3178449433 / Confirmed BPH (benign prostatic hyperplasia) / SNOMED CT 581184307 / Confirmed Diabetes / SNOMED CT 939205734 / Confirmed Hallux rigidus, bilateral / SNOMED CT 716621672 / Confirmed Pain in both feet / SNOMED CT 104238725 / Confirmed Arthritis of both feet / SNOMED CT 5661293866 / Confirmed Callus / SNOMED CT 911144493 / Confirmed Resolved: Acute sinusitis / SNOMED CT 69524677 Resolved: Acute pharyngitis / SNOMED CT 685940186 Resolved: Dysuria / SNOMED CT 43807657 Resolved: Lovell's palsy / SNOMED CT 164601722 Resolved: Acute prostatitis / SNOMED CT 875675483 Resolved: Acute pain of right knee / SNOMED CT 77011857 Resolved: Bacterial prostatitis / SNOMED CT 7336207476 Canceled: Weight monitoring / SNOMED CT 230736777 Canceled: HDL deficiency / SNOMED CT 7277426452 Canceled: Benign essential HTN / SNOMED CT 3772313 Canceled: Type 2 diabetes, HbA1c goal < 7% / SNOMED CT 816739040 Canceled: Anxiety / SNOMED CT 39046333 All Problems Hypertension / SNOMED CT [id number] / Confirmed Depression / SNOMED CT 91664813 / Confirmed BCC (basal cell carcinoma) / SNOMED CT [id number] / Confirmed FH: skin cancer / ICD-9-CM V16.8 / Confirmed AK (actinic keratosis) / SNOMED CT [id number] / Confirmed Weight disorder / SNOMED CT 359355118 / Confirmed Dyslipidemia / SNOMED CT 90920169 / Confirmed History of squamous cell carcinoma in situ of skin / SNOMED CT 0421115878 / Confirmed 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 / SNOMED CT 121437928 / Confirmed Anxiety / SNOMED CT 87110604 / Confirmed Borderline hypothyroidism / SNOMED CT 83431067 / Confirmed Right trigeminal neuralgia / SNOMED CT 11949443 / Confirmed Abnormal brain MRI / SNOMED CT 2513681419 / Confirmed Dysuria / SNOMED CT 94140116 / Confirmed Schmidt's cyst of knee / SNOMED CT 880332516 / Confirmed Laceration of lower leg, right / SNOMED CT 8379045176 / Confirmed Emotional stress / SNOMED CT 8924866344 / Confirmed Chronic constipation / SNOMED CT 114055440 / Confirmed Dizziness / SNOMED CT 6491034663 / Confirmed OA (osteoarthritis) of knee / SNOMED CT 033546591 / Confirmed Depression / SNOMED CT 17495622 / Confirmed Urinary urgency / SNOMED CT 710944383 / Confirmed Hernia, inguinal, right / SNOMED CT 888932500 / Confirmed Peyronie's disease / SNOMED CT 1171002 / Confirmed External inguinal hernia / SNOMED CT 829053022 / Confirmed Annual physical exam / SNOMED CT 478750538 / Confirmed Acute allergic rhinitis / SNOMED CT 664182733 / Confirmed Adult hypothyroidism / SNOMED CT 07819994 / Confirmed Seborrheic keratosis / SNOMED CT 0198578049 / Confirmed Benign parotid tumor / SNOMED CT 626032345 / Confirmed Effusion, right knee / SNOMED CT 4880512020 / Confirmed BPH (benign prostatic hyperplasia) / SNOMED CT 814050127 / Confirmed Diabetes / SNOMED CT 648776241 / Confirmed Hallux rigidus, bilateral / SNOMED CT 658734384 / Confirmed Pain in both feet / SNOMED CT 728611535 / Confirmed Arthritis of both feet / SNOMED CT [id number] / Confirmed Callus / SNOMED CT 701736398 / Confirmed Resolved: Acute sinusitis / SNOMED CT 28419944 Resolved: Acute pharyngitis / SNOMED CT 200509145 Resolved: Dysuria / SNOMED CT 95461288 Resolved: Lovell's palsy / SNOMED CT 650985160 Resolved: Acute prostatitis / SNOMED CT 751415671 Resolved: Acute pain of right knee / SNOMED CT 39326864 Resolved: Bacterial prostatitis / SNOMED CT 8768905403 Canceled: Weight monitoring / SNOMED CT 122402377 Canceled: HDL deficiency / SNOMED CT 5390840595 Canceled: Benign essential HTN / SNOMED CT 7558770 Canceled: Type 2 diabetes, HbA1c goal < 7% / SNOMED CT 369789790 Canceled: Anxiety / SNOMED CT 68129245. Mohs Surgical Information Operation: Surgical excision of cutaneous malignancy using continuous microscopic control (Mohs Micrographic Surgery). Diagnosis: Basal cell carcinoma of scalp ([id number] C44.41, Discharge, Medical), Nodular, Superficial, Note, adjacent biopsy sites labeled as left crown of scalp, lateral and medial treated as 1 site due to proximity. Nurse/MA: Surgical Information Surgical Diagnosis: Nodular, Superficial Surgical Location: Left, Scalp, Other: [place] Previous Treatment: None Anesthetic: 1% lidocaine with epinephrine Preop Size of Tumor Length: 0.8 cm Preop Size of Tumor Width: 0.8 cm Stage 1 Number of Specimens: 1 Stage 2 Number of Specimens: 1 Final defect size Length: 2.8 cm Final defect size Width: 1.5 cm Size of repair: 4.6cmPrimary Type of Suture: Monocryl 4-0, Vicryl Rapide 4-0 Postoperative Follow up: Regular skin check with the referring lithograph designer . Indications for Mohs surgery: Ill-defined margins. Comments: moderate risk location. Appropriate Use Criteria (AUC): 8 . Clinical description: 0.8 cm pink atrophic papule with adjacent 0.8 cm pink atrophic papule consistent with a adjacent biopsy sites. Procedure: Informed consent was obtained which included explanation of the Mohs surgery procedure, reasons why Mohs surgery was preferable to alternatives such as standard excision, and wound management, associated risks, scarring, and potential need for further surgery. The patient verbalized understanding and all questions were answered. The biopsy site/lesion was outlined, and the location was re-confirmed by the patient using a hand held mirror. The operative site was then prepped with antiseptic solution, draped, and anesthetized with a infiltration of local anesthetic. Following this, the clinically apparent portion of the tumor was surgically removed. A thin layer of tissue was then surgically excised around the tumor. Hemostasis was obtained with electrocautery, or aluminum chloride, and a pressure dressing was placed on the wound. Bipolar forceps were used in patients with an implanted electrical device. A reference map was drawn and the excised tissue was cut into an appropriate number of sections for examination in the Mohs micrographic laboratory. Edges of each tissue section were dyed with tissue marking ink inorder to achieve precise orientation. These tissue sections were then processed and stained to produce slides for evaluation of the entire peripheral and deep margins of the excised tissue. The prepared microscopic sections were then examined by the Mohs surgeon. Any areas of residual tumor on the tissue margin were indicated on the reference map, pinpointing the location in which further tissue excision was necessary. For all additional Mohs stages: The operative site was draped, and additional local anesthetic was infiltrated as needed. A layer of tissue was then excised around the areas corresponding to the reference map indicating residual tumor in the patient. Hemostasis was obtained as above. A reference map was drawn and the excised tissue was cut into an appropriate number of sections for examination in Mohs laboratory. The tissue wasinked and processed as above. The prepared microscopic sections were then examined by the Mohs surgeon. If applicable, any areas of residual tumor on the tissue margin were indicated on the referencemap, pinpointing the location in which further tissue excision was necessary. This process was repeated until all surgical margins were felt to be free of tumor. Stages: Stage 1 included multiple microscopic sections of 1 tissue specimens, Stage 2 included multiple microscopic sections of 1 tissue specimens, At this point, no further tumor cells were identified. Tumor eradication was complete after a total of 2 stage(s) of surgery. Histology: Stage: 1. Frozen Section Histology: Microscopic examination of tissue revealed the presence of multifocal areas of pleomorphic basaloid cells budding off of the epidermis. The tumor islands show hyperchromasia, peripheral palisading and retraction artifact in a fibromyxoid stroma. This is consistent with superficial basal cell carcinoma Tumor is marked in red on the attached Mohs map.. Depth of Invasion: Epidermis. Scar tissue: Absent. Histology: Stage: 2. Frozen Section Histology: Microscopic examination of tissue revealed margins clear of tumor. . Procedural Time Out: Patient identified with name and date of , Procedure verified, Correct site, if applicable. Anesthetic: 0.5% lidocaine with epinephrine and bicarbonate. Total volume of anesthetic administered: 12 ml. Wound management: A discussion was held with the patient about reconstruction options and wound healing, addressing functional and cosmetic concerns along with benefits and potential risks of each approach., The resultant defect was examined and it was decided that a layered linear closure would best maintain appropriate function of the region without causing distortion of nearby anatomic structures, reduce postoperative morbidity, healing time and risk of infection. It was also required to restore function, eliminate space, relieve tension, prevent deformity, and approximate the edges of the defect, which extended to the deep subcutaneous tissues. Additionally, the defect is being reconstructed with the goal to approximate its appearance prior to Mohs micrographic surgery. The surgical defect and surrounding skin were prepped and draped with sterile towels to ensure a sterile field. Supplemental anesthesia was administered. The wound edges were undermined with a combination of sharp and blunt dissection in the deep subcutaneous plane. The long axis of the closure was oriented so as to parallel the relaxed skin tension lines as much as possible to minimize any pull or distortion on nearby anatomic structures. Linear closure of the circular excisional defect created bilateral incipient standing cones at each pole of the excision. The excision was then extended bilaterally at each end by the removal of this redundant tissue as Graball triangles. Hemostasis was achievedwith spot electrocautery and suture ligation as needed. The defect was then closed in a layered fashion consisting of absorbable sutures in the deep subcutaneous plane followed by separate closure ofthe superficial subcutaneous tissue and skin with superficial cutaneous sutures. The wound was cleansed, a sterile pressure dressing was placed on it, and the patient was instructed in postoperative care.. Procedure Tolerated: Well, Without complications, Estimated blood loss 10 ml. Postoperative follow up: PRN for above and as scheduled with Nadiya Stratton PA-C for skin exam . Photo: . 2024-02-14 08:36:30 2024-02-14 10:47:26 2024-02-14 11:28:15 Mohs Surgical Information Second Site Diagnosis: Basal cell carcinoma of scalp ([id number] C44.41, Discharge, Medical). Nurse/MA: Surgical Information 2nd Site Surgical Diagnosis 2nd Site: Nodular, Superficial Surgical Location 2nd Site: Left, Scalp, Other: [place] Previous Treatment 2nd Site: None Preop Size of Tumor 2nd Site Length: 1.3 cm Preop Size of Tumor 2nd Site Width: 0.9 cm Stage 1 2nd Site Number of Specimens: 1 Final defect size 2nd Site length: 1.7 cm Final defect size 2nd Site width: 1.5 cm Size of repair 2nd Site: 4.0cmPrimary . Indications for Mohs surgery: Large size, Ill-defined margins. Comments: moderate risk location. Appropriate Use Criteria (AUC): 8 . Clinical description: 1.3 cm pink atrophic and pearly plaque. Stages: Stage 1 included multiple microscopic sections of 1 tissue specimens, At this point, no further tumor cells were identified. Tumor eradication was complete after a total of 1 stage(s) of surgery. Procedure: The biopsy site/lesion was outlined, and the location was re- confirmed by the patient using a hand held mirror. The operative site was then prepped with antiseptic solution, draped, and anesthetized with an infiltration of local anesthetic. Following this, the clinically apparent portionof the tumor was surgically removed. A thin layer of tissue was then surgically excised around the tumor. Hemostasis was obtained as above. A reference map was drawn and the excised tissue was cut into an appropriate number of sections for examination in the Mohs micrographic laboratory. The tissuewas inked and processed as above. The prepared microscopic sections were then examined by the Mohs surgeon. . Wound management: A discussion was held with the patient about reconstruction options and wound healing, addressing functional and cosmetic concerns along with benefits and potential risks of each approach.. Procedure Tolerated: Well, Without complications, Estimated blood loss 10 ml. Photo 2024-02-14 08:36:51 2024-02-14 10:30:53 2024-02-14 11:28:30 Electronic Signature on File CC: Kailyn Donovan MD [address] [place] [address] [address] [place] [id number] Electronically Reviewed/Signed by: Linda Garcia MD Author Signature Dt/Tm:02/14/2024 10:13 PM Department of Dermatology CS * MD Garcia Cassandra: PERFORM Event Display: Dermatology Outpt Proc Authored Date: [id number] Wound management, second site, left parietal scalp: A discussion was held with the patient about reconstruction options and wound healing, addressing functional and cosmetic concerns along with benefits and potential risks of each approach., The resultant defect was examined and it was decided thata layered linear closure would best maintain appropriate function of the region without causing distortion of nearby anatomic structures, reduce postoperative morbidity, healing time and risk of infection. It was also required to restore function, eliminate space, relieve tension, prevent deformity, and approximate the edges of the defect, which extended to the deep subcutaneous tissues. Additionally, the defect is being reconstructed with the goal to approximate its appearance prior to Mohs micrographic surgery. The surgical defect and surrounding skin were prepped and draped with sterile towels to ensure a sterile field. Supplemental anesthesia was administered. The wound edges were undermined with a combination of sharp and blunt dissection in the deep subcutaneous plane. The longaxis of the closure was oriented so as to parallel the relaxed skin tension lines as much as possible to minimize any pull or distortion on nearby anatomic structures. Linear closure of the circular e xcisional defect created bilateral incipient standing cones at each pole of the excision. The excision was then extended bilaterally at each end by the removal of this redundant tissue as Graball triangles. Hemostasis was achieved with spot electrocautery and suture ligation as needed. The defect was then closed in a layered fashion consisting of absorbable sutures in the deep subcutaneous plan e followed by separate closure of the superficial subcutaneous tissue and skin with superficial cutaneous sutures. The wound was cleansed, a sterile pressure dressing was placed on it, and the patient was instructed in postoperative care. Electronic Signature on File Electronically Reviewed/Signed by: Linda Garcia MD Author Signature Dt/Tm:02/16/2024 02:00 PM Department of Dermatology CS Patient Care team information Care Team Personnel Name: MD Donovan Amy L Position: Physician - Family Med Member Role: Primary Care Provider Address: [address] [place] [address] Care Team Related Persons Name: MARY BERRY
[2024-02-25 06:04] LABS: Hematocrit (blood only) 39.1 % (42.0-52.0); Hemoglobin 13.2 g/dl (14.0-18.0); Mean Corpuscular Hgb Conc 33.8 g/dL (32.0-36.0); Mean Corpuscular Volume 82.8 fL (80.0-100.0); Mean Platelet Volume 10.5 fL (9.4-12.4); Platelet Count 265 K/uL (130-400); RDW Coefficient of Variation 14.3 % (11.5-14.5); RDW Standard Deviation 42.9 fL (36.4-46.3); Red Blood Count 4.72 M/uL (4.70-6.10); White Blood Count 10.98 K/ul (4.8-10.8)
[2024-02-25 06:13] LABS: Albumin Globulin Ratio 1.6 (0.9-2); Albumin Level 3.8 gm/dl (3.4-5.0); Bilirubin,Total 0.7 mg/dl (0.2-1.0); Calcium 8.7 mg/dl (8.6-10.3); Creatinine Clr Calc Pharmacy 69.1 ml/min; Globulin 2.4 gm/dl (2.5-4.0); Magnesium 2.2 mg/dl (1.7-2.4); Potassium 3.6 mmol/L (3.5-5.1); Total Protein 6.2 gm/dl (6.0-8.3)
[2024-02-25 06:22] LABS: Troponin I High Sensitivity 618.4 pg/ml (0-20)
[2024-02-25] MEDS ORDERED: Heparin IV Adult Wt-Based Standard *NO* INITIAL Bolus Protocol IV SCH (06:45)
--- NOTE | 2024-02-25 06:46 | XRay Report ---
EXAM: XR chest 1V portable CLINICAL HISTORY: AFIB EVAL SDM TECHNIQUE: An X-ray image of the chest is obtained in 1 AP projection. COMPARISON: CR 04/20/2018. FINDINGS: Pulmonary Parenchyma: Lungs are clear bilaterally. No evidence of consolidation, collapse, or focal opacities. No pulmonary nodules are identified. No evidence of pleural effusion or pleural thickening. Heart and Mediastinum: Heart size and shape are normal. No mediastinal widening or masses. No hilar or mediastinal lymphadenopathy. Bony Thorax: thoracic spondylosis. Soft Tissues: Soft tissues overlying the chest wall are unremarkable. IMPRESSION: 1. Normal chest X-ray. (unchanged). 2. No acute cardiopulmonary abnormalities are identified. Electronically signed by Raf Chavis 02-25-2024 06:46 AM
[2024-02-25] MEDS: HEPARIN 25000 UNIT/500 ML D5W IV ONE (07:21)
--- NOTE | 2024-02-25 07:37 | Hospitalist Progress Note ---
Date of Service February 25, 2024 Assessment & Plan (1) Atrial fibrillation with rapid ventricular response: (2) Elevated troponin: (3) Hyperglycemia: (4) Acute kidney injury: (5) Diabetes: Plan Jamshid is a 68M w/ PMH of T2DM, HTN, HLD, Depression, Anxiety, BPH, Hypothyroidism who presented to the emergency department 02/24/24 and was found to be in atrial fibrillation with RVR, patient was admitted 02/25/24 for further inpatient management. New Onset AFib/AFlutter - Symptomatic AFib/Flutter on presentation likely provoked by missed Atenolol doses vs dehydration. Resolved w/ IV Lopressor 5 mg. Repeat EKG in NSR w/o acute ST or T wave changes. Completed 500 cc bolus NSS, continue NSS @ 100 ml/hr x 1 bag Restarted home Atenolol 50 mg qAM (noted to be for BP control outpatient), but may benefit from change to Metoprolol - Normal CXR - Echocardiogram shows EF at 55-60%, mild mitral regurgitation, borderline concentric LVH, no wall motion abnormalities and LV systolic function - CHADVASC 3, recommending anticoagulation Discussed risk & benefits w/ patient Agreeable to start Eliquis BID- on hold due to starting heprin drip Elevated Troponin w/o Chest Pain - Serial troponin 172-->315--> 618-->553 - Presenting EKG w/ A Fib/Flutter RVR, repeat EKG w/o acute ST/T wave changes - Hemodynamically stable on room air - Suspect demand ischemia in setting of acute onset AFib RVR Started Heparin drip 1600 u/hr - No hx of CAD or current symptoms of ACS, although pt has multiple risks (DM, HLD, HTN) Repeat EKG this AM showed no acute changes - Consider Cardiology consultation vs follow up in outpatient setting for future cardiac cath Acute Kidney Injury - Baseline 1.15-1.17, currently trending down and at 1.27 - Suspect dehydration component, patient w/ dry mucous membranes. Completed 500 cc bolus NSS, continue NSS @ 100 ml/hr x 1 bag - Follow continue to follow BUN/Cr/GFR Type 2 DM, Hyperglycemia - Hyperglycemic to 300s on presentation - Home medications (Metformin, Jardiance, Glipizide) held - BSG checks ACHS w/ SSI inpatient - AM A1c ordered, last documented 9.4 on 12/02/23 Chronic conditions: - Continue home medications unless otherwise specified above Diet: HH, DM2 Code: Full IVF: NSS @ 100 DVT: Jody in AM Dispo: Med/tele Admission and Anticipated Discharge Date Admission Date: February 25, 2024 Supervising Physician Co-Signing Physician Notes I personally examined the patient and verified all ocampo points of history and exam, discussed case, and agree with decision making with Dr Vigil feeling good. discussed findings. vitals noted nad heent nc at mmm breathing unlabored no accessory muscles good effort skin no rashes no pallor or icterus afib/flutter/RVR - now converted to NSR. beta saadia, anticoagulation. ST depressions/elevated troponin - fairly significant demand ischemia while tachycardic. fortunately no characteristic symptoms. does have significant risk for CAD - would suspect cath would be beneficial. d/w pt with no sx and demand ischemia in the context of RVR, could pursue cath as outpt; at the same time this could be facilitated much more quickly inpatient. he will consider options and decide otherwise as above Subjective Pt is a 68 yo male with PMH of DMT2, hypothyroidism BPH, HTN, and OA who presented to ED on 02/24/24 with A-fib and RVR. He was given one dose of metoprolol and converted to sinus rhythm. Serial troponin revealed elevation and ECG while in a-fib showed some ST elevation. Pt denies CP, tightness, SOB, nausea or dizziness upon admission. This morning, pt reports feeling good. He notes ocassional sweating, but denies CP, chest tightness, SOB, dizziness, nausea or vomiting. Review of Systems Review of Systems: As per HPI Physical Exam Physical Exam: Gen: NAD, alert, interactive HEENT: Supple, no LAD, no thyromegaly, no JVD, dry mucous membranes Resp:Non-labored, no wheezing/rhonchi/rales, CTAB CV:RRR, normal S1/S2, no M/R/G Abd: Soft, non-distended, no TTP, normoactive bowels, no masses Extr: 2+ dp bilaterally, mild nonpitting edema at right lower leg, ankle and foot. Wearing LORENZO hose Skin: Healing lacerations/sutures on scalp (s/p Mohs surgery) Results & Data Results & Data Vital Signs (Past 12 Hours) Vital Signs Temp Pulse Pulse Resp BP BP Pulse Ox 02/25/24 03:42 71 02/25/24 03:00 36.6 C 69 20 152/82 H 97 02/25/24 02:53 36.6 C 69 20 152/82 H 97 02/25/24 02:53 02/25/24 02:33 02/25/24 02:24 71 17 94 02/25/24 02:12 70 16 118/74 96 02/25/24 02:03 70 15 95 02/25/24 01:33 76 22 97 02/25/24 01:15 84 113/92 02/25/24 01:12 83 21 97 02/25/24 01:00 81 19 97 02/25/24 00:54 90 16 97 02/25/24 00:33 85 18 98 02/25/24 00:12 88 23 99 02/25/24 00:09 86 24 99 02/24/24 23:45 86 21 98 02/24/24 23:34 89 113/92 02/24/24 23:31 91 H 02/24/24 23:30 89 23 94 02/24/24 23:21 134 H 24 93 02/24/24 23:18 159 H 21 94 02/24/24 23:07 169 H 02/24/24 23:07 113/92 02/24/24 23:07 113/92 02/24/24 23:07 113/92 02/24/24 23:06 158 H 23 95 02/24/24 23:06 164 H 119/92 02/24/24 23:03 165 H 21 96 02/24/24 23:02 154 H 02/24/24 23:02 02/24/24 23:01 119/92 02/24/24 23:01 119/92 02/24/24 23:01 119/92 02/24/24 22:53 36.0 C L 166 H 15 127/78 95 Pulse Ox O2 Del Method O2 Del Method 02/25/24 03:42 02/25/24 03:00 Room Air 02/25/24 02:53 Room Air 02/25/24 02:53 97 Room Air 02/25/24 02:33 Room Air 02/25/24 02:24 02/25/24 02:12 Room Air 02/25/24 02:03 02/25/24 01:33 02/25/24 01:15 02/25/24 01:12 02/25/24 01:00 02/25/24 00:54 02/25/24 00:33 02/25/24 00:12 02/25/24 00:09 02/24/24 23:45 02/24/24 23:34 02/24/24 23:31 02/24/24 23:30 02/24/24 23:21 02/24/24 23:18 02/24/24 23:07 02/24/24 23:07 02/24/24 23:07 02/24/24 23:07 02/24/24 23:06 02/24/24 23:06 02/24/24 23:03 02/24/24 23:02 02/24/24 23:02 Room Air 02/24/24 23:01 02/24/24 23:01 02/24/24 23:01 02/24/24 22:53 Room Air Resident Activity Tracking Resident Involvement: Resident Care Provided Care Provided: Adult Hospital Medicine
[2024-02-25] MEDS: HEPARIN SODIUM/DEXTROSE 25,000 UNITS/500 ML BAG IV SCH (07:41)
[2024-02-25 08:27] LABS: Estimated Average Glucose 226 mg/dl; Hemoglobin A1C 9.5 % (4.5-5.6)
[2024-02-25] MEDS ORDERED: APIXABAN 5 MG TABLET PO SCH (09:00)
[2024-02-25] MEDS: INSULIN ASPART PER UNIT CHARGE SC SCH (09:04)
[2024-02-25] MEDS: SERTRALINE HCL 100 MG TABLET PO SCH (09:05)
[2024-02-25] MEDS: ATENOLOL 50 MG TABLET PO SCH (09:05)
[2024-02-25] MEDS: GABAPENTIN 100 MG CAP PO SCH (09:05)
[2024-02-25] MEDS: ASPIRIN 81 MG CHEW PO SCH (09:05)
[2024-02-25] MEDS: amLODIPine BESYLATE 5 MG TAB PO SCH (09:05)
[2024-02-25] MEDS: LOSARTAN POTASSIUM 50 MG TAB PO SCH (09:05)
--- NOTE | 2024-02-25 12:30 | XCELERA ---
[id number]
--- NOTE | 2024-02-25 12:47 | Electrocardiogram Report ---
Test Reason : Blood Pressure : */* mmHG Vent. Rate : 164 BPM Atrial Rate : 164 BPM P-R Int : 94 ms QRS Dur : 80 ms QT Int : 252 ms P-R-T Axes : 72 57 -82 degrees QTcB Int : 416 ms Possible Sinus tachycardia with short IN Abnormal ECG When compared with ECG of 20-Apr-2018 20:24, Significant changes have occurred Confirmed by Matt Mcgee ([id number]) on 02/25/2024 12:47:35 PM Referred By: REFERRED SELF Confirmed By: Matt Mcgee
--- NOTE | 2024-02-25 12:49 | Electrocardiogram Report ---
Test Reason : Blood Pressure : */* mmHG Vent. Rate : 64 BPM Atrial Rate : 64 BPM P-R Int : 168 ms QRS Dur : 90 ms QT Int : 406 ms P-R-T Axes : 14 22 38 degrees QTcB Int : 418 ms Suspect V1-V3 lead reversal Normal sinus rhythm Cannot rule out Anterior infarct , age undetermined Abnormal ECG When compared with ECG of 24-Feb-2024 22:59, (unconfirmed) Significant changes have occurred Confirmed by Matt Mcgee ([id number]) on 02/25/2024 12:49:04 PM Referred By: REFERRED SELF Confirmed By: Matt Mcgee
[2024-02-25 14:46] LABS: ANTI-Xa, LMWH(Low Molecular Wt 0.29 IU/ML (< 0.10)
--- NOTE | 2024-02-25 14:51 | Billing Data ---
Date of Service February 25, 2024 Coding Level of Care Code 96481 SUB INP/OBS CARE MIN
[2024-02-25] MEDS: PRAVASTATIN SOD 10 MG TAB PO SCH (20:59)
[2024-02-25] MEDS: TAMSULOSIN HCL 0.4 MG CAP PO SCH (20:59)
[2024-02-25 21:43] LABS: ANTI-Xa, UFH(UnfractionatedHep 0.35 IU/ml (0.3-0.7)
--- NOTE | 2024-02-25 22:09 | Billing Data ---
Date of Service February 25, 2024 Coding Level of Care Code 15586 INT INP/OBS CARE
[2024-02-26 03:39] VITALS: TEMP 97.9
[2024-02-26] MEDS ORDERED: SODIUM CHLORIDE 0.65% NA SOLN 45 ML (OCEAN) PRN (03:41)
[2024-02-26] MEDS ORDERED: ACETAMINOPHEN 325 MG TAB PO PRN (03:50)
[2024-02-26] MEDS: SODIUM CHLORIDE 0.65% NA SOLN 45 ML (OCEAN) ONE (04:18)
[2024-02-26] MEDS: ACETAMINOPHEN 325 MG TAB ONE (04:43)
--- NOTE | 2024-02-26 06:50 | Hospitalist Progress Note ---
Date of Service February 26, 2024 Assessment & Plan (1) Atrial fibrillation with rapid ventricular response: (2) Elevated troponin: (3) Hyperglycemia: (4) Acute kidney injury: (5) Diabetes: Plan Jamshid is a 68M w/ PMH of T2DM, HTN, HLD, Depression, Anxiety, BPH, Hypothyroidism who presented to the emergency department 02/24/24 and was found to be in atrial fibrillation with RVR, patient was admitted 02/25/24 for further inpatient management. New Onset AFib/AFlutter - Symptomatic AFib/Flutter on presentation likely provoked by missed Atenolol doses vs dehydration. Resolved w/ IV Lopressor 5 mg. Repeat EKG in NSR w/o acute ST or T wave changes. Completed 500 cc bolus NSS, continue NSS @ 100 ml/hr x 1 bag. Normal CXR - Continue Atenolol 50 mg qAM (noted to be for BP control outpatient), but may benefit from change to Metoprolol Elevated Troponin w/o Chest Pain - Serial troponin 172-->315--> 618-->553 - Presenting EKG w/ A Fib/Flutter RVR, repeat EKG w/o acute ST/T wave changes - Hemodynamically stable on room air - Suspect demand ischemia in setting of acute onset AFib RVR. No hx of CAD or current symptoms of ACS, although pt has multiple risks (DM, HLD, HTN) - Echocardiogram shows EF at 55-60%, mild mitral regurgitation, borderline concentric LVH, no wall motion abnormalities and LV systolic function - CHADVASC 3, recommending anticoagulation Continue Heparin drip 1700u/hr - Cardiology consulted, awaiting recommendations Acute Kidney Injury - Baseline 1.15-1.17, currently trending down and at 1.27 - Suspect dehydration component, patient w/ dry mucous membranes. Completed 500 cc bolus NSS, continue NSS @ 100 ml/hr x 1 bag - Follow continue to follow BUN/Cr/GFR Type 2 DM, Hyperglycemia Hyperglycemic to 300s on admission. Ranging from 167 to 212 in the last 24 hrs. A1c 9.5 on 02/25/24 - Home medications (Metformin, Jardiance, Glipizide) held - BSG checks ACHS w/ SSI inpatient - Glargine 5 units qd - Aspart per sliding scale Chronic conditions: - Continue home medications unless otherwise specified above Diet: HH, DM2 Code: Full IVF: None since 02/25/24 DVT: Heparin drip Dispo: Med/tele Admission and Anticipated Discharge Date Admission Date: February 25, 2024 Subjective Pt is a 68 yo male with PMH of DMT2, hypothyroidism BPH, HTN, and OA who presented to ED on 02/24/24 with A-fib and RVR. He was given one dose of metoprolol and converted to sinus rhythm. Serial troponin revealed elevation and ECG while in a-fib showed some ST elevation. Pt denies CP, tightness, SOB, nausea or dizziness upon admission. After discussion with pt and his daughter, felt it was best to stay in hospital to consult with cardiology for possible cardiac cath to explore causes cardiac ischemia found during A-fib episode. This morning, pt reports feeling well with exception of having night sweats. Denies CP, chest tightness, SOB, nausea, dizziness/lightheadedness when ambulating. Review of Systems Review of Systems: As per HPI Physical Exam Physical Exam: Gen: NAD, alert, interactive HEENT: Supple, no LAD, no thyromegaly, no JVD, normal mucous membranes Resp:Non-labored, no wheezing/rhonchi/rales, CTAB CV:RRR, normal S1/S2, no M/R/G Abd: Soft, non-distended, no TTP, normoactive bowels, no masses Extr: 2+ dp bilaterally, mild nonpitting edema at right lower leg, ankle and foot. Wearing LORENZO hose Skin: Healing lacerations/sutures on scalp (s/p Mohs surgery) Results & Data Results & Data Vital Signs (Past 12 Hours) Vital Signs Temp Pulse Pulse Resp BP Pulse Ox Pulse Ox 02/26/24 03:38 36.6 C 67 20 175/89 H 96 02/26/24 03:31 97 02/25/24 23:15 60 02/25/24 23:14 36.7 C 62 20 167/82 H 97 02/25/24 20:38 36.8 C 67 19 134/76 96 O2 Del Method O2 Del Method 02/26/24 03:38 Room Air 02/26/24 03:31 Room Air 02/25/24 23:15 02/25/24 23:14 Room Air 02/25/24 20:38 Room Air
[2024-02-26 07:50] LABS: Hematocrit (blood only) 39.1 % (42.0-52.0); Hemoglobin 12.9 g/dl (14.0-18.0); Mean Corpuscular Hemoglobin 27.7 pg (25.0-34.0); Mean Corpuscular Volume 84.1 fL (80.0-100.0); Mean Platelet Volume 10.1 fL (9.4-12.4); Platelet Count 235 K/uL (130-400); RDW Coefficient of Variation 14.4 % (11.5-14.5); RDW Standard Deviation 43.8 fL (36.4-46.3); Red Blood Count 4.65 M/uL (4.70-6.10); White Blood Count 8.86 K/ul (4.8-10.8)
[2024-02-26 08:01] VITALS: RESP 18
[2024-02-26 08:12] LABS: Albumin Globulin Ratio 1.3 (0.9-2); Albumin Level 3.5 gm/dl (3.4-5.0); BUN Creatinine Ratio 13.6 (10-20); Bilirubin,Total 0.6 mg/dl (0.2-1.0); Calcium 8.7 mg/dl (8.6-10.3); Creatinine Clr Calc Pharmacy 79.6 ml/min; Globulin 2.8 gm/dl (2.5-4.0); Potassium 3.6 mmol/L (3.5-5.1); Total Protein 6.3 gm/dl (6.0-8.3)
[2024-02-26] MEDS: LANTUS PER UNIT CHARGE SQ SCH (08:47)
[2024-02-26 09:04] LABS: ANTI-Xa, UFH(UnfractionatedHep 0.48 IU/ml (0.3-0.7)
[2024-02-26 11:18] VITALS: PULSE 72; O2SAT 97
--- NOTE | 2024-02-26 12:38 | Discharge Summary ---
Date of Service February 26, 2024 Admission HPI Per Admitting Provider Jamshid is a 68M w/ PMH of T2DM, HTN, HLD, Depression, Anxiety, BPH, Hypothyroidism who presented to the emergency department 02/24/24 and was found to be in atrial fibrillation with RVR, patient was admitted 02/25/24 for further inpatient management. Patient notes that he has felt 'off' for the last 4 days and has been more tired than usual. He presented to the ER tonight after having an episode of palpit ations and sweating. He has been unable to obtain his normal dose of Atenolol 50 mg PO (due to having to change pharmacies and the weather today) for 4 days. Patient notes that he has never had an episode of AFib/AFlutter before, has no history of CAD, and has never followed w/ Cardiology. He notes a history of anxiety attacks which started out as similar to this, but states this episode was much more profound than previous anxiety events. Patient denies chest pain or dyspnea, he is not feeling LH or dizzy. He is known to have chronic lower extremity edema that happens intermittently but resolves with leg elevation overnight. Patient denies recent URI symptoms, but notes that he has felt more 'dry' over the last week and has tried to increase his water intake. Patient is independent of ADLs at baseline and has noted no change in activity, he states that he climbs multiple flights of stairs daily w/o dyspnea or chest discomfort. Patient notes that he has also struggled to obtain his DM medications over the last 6 months, due to national shortages, he has been off Trulicity. He is now managed with Metformin, Glipizide, and Jardiance only. Home glucose averages have been 120-160. Principal Diagnosis A-fib with RVR and possible demand ischemia Discharge Exam Gen: NAD, alert, interactive HEENT: Supple, no LAD, no thyromegaly, no JVD, normal mucous membranes Resp:Non-labored, no wheezing/rhonchi/rales, CTAB CV:RRR, normal S1/S2, no M/R/G Abd: Soft, non-distended, no TTP, normoactive bowels, no masses Extr: 2+ dp bilaterally, mild nonpitting edema at right lower leg, ankle and foot. Wearing LORENZO hose Skin: Healing lacerations/sutures on scalp (s/p Mohs surgery Discharge Data Allergies Allergy/AdvReac Type Severity Reaction Status Date / Time lisinopril Allergy Severe ANGIOEDEMA Unverified 01/30/24 13:05 Sulfa (Sulfonamide Allergy Unknown HAIRY Unverified 01/30/24 13:05 Antibiotics) BROWN TONGUE Consultations 02/25/24 00:42 ED Decision to Admit Stat 02/25/24 15:15 Consult Cardiology Routine Hospital Course (1) Atrial fibrillation with rapid ventricular response: (2) Elevated troponin: (3) Hyperglycemia: (4) Acute kidney injury: (5) Diabetes: Silvano Breen is a 68M w/ PMH of T2DM, HTN, HLD, Depression, Anxiety, BPH, Hypothyroidism who presented to the emergency department 02/24/24 and was found to be in atrial fibrillation with RVR, patient was admitted 02/25/24 for further inpatient management. New Onset AFib/AFlutter - Symptomatic AFib/Flutter on presentation likely provoked by missed Atenolol doses vs dehydration. Resolved w/ IV Lopressor 5 mg. Repeat EKG in NSR w/o acute ST or T wave changes. Completed 500 cc bolus NSS, continue NSS @ 100 ml/hr x 1 bag. Normal CXR - Changed atenolol 50mg at home to metoprolol 50mg qd - Added Eliquis 5mg BID for home Elevated Troponin w/o Chest Pain - Serial troponin 172-->315--> 618-->553 - Presenting EKG w/ A Fib/Flutter RVR, repeat EKG w/o acute ST/T wave changes - Hemodynamically stable on room air - Suspect demand ischemia in setting of acute onset AFib RVR. No hx of CAD or current symptoms of ACS, although pt has multiple risks (DM, HLD, HTN) - Echocardiogram shows EF at 55-60%, mild mitral regurgitation, borderline concentric LVH, no wall motion abnormalities and LV systolic function - CHADVASC 3, recommending anticoagulation Stopped Heparin drip 1700u/hr - Cardiology consulted, recommends follow up in outpatient for possible demand ischemia Acute Kidney Injury - Baseline 1.15-1.17, currently trending down and at 1.27 - Completed 500 cc bolus NSS, continue NSS @ 100 ml/hr x 1 bag on 02/25/24 - Follow continue to follow BUN/Cr/GFR Type 2 DM, Hyperglycemia Hyperglycemic to 300s on admission. Ranging from 167 to 212 in the last 24 hrs. A1c 9.5 on 02/25/24 - Home medications (Metformin, Jardiance, Glipizide) held - BSG checks ACHS w/ SSI inpatient - Glargine 5 units qd - Aspart per sliding scale Chronic conditions: - Continue home medications unless otherwise specified above Diet: HH, DM2 Code: Full IVF: None since 02/25/24 DVT: Heparin drip Dispo: Med/tele Total Time Total Time Spent Total Time Spent (In Minutes): As per attending physician's attestation Discharge Plan Discharge Items Patient Disposition: Home - Self-Care Reason For Visit: AFIB RVR Discharge Diagnosis: A-fib with RVR and possible demand ischemia Activity: Resume your previous activity Non-emergency contact: Primary Care Provider Call non-emergency contact if: your symptoms worsen Follow-up/Referrals: Kailyn Donovan MD [Primary Care Provider] - Diet: Carb Consistent or DM2 and Heart Healthy Addtl Attending Provider Instructions: You were admitted for new onset of atrial fibrillation with rapid ventricular rate. Your heart converted back to sinus rhythm with one IV dose of metoprolol. While your heart was stressed by the arrhythmia, testing showed possible reduced blood flow to your heart. The Echocardiogram showed good cardiac function. After consultation with the design drafter, Dr. Mcgee, he recommended further work up of reduced blood flow to your heart on an outpatient basis. Please contact [facility] to schedule an appointment. Due to the new onset arrhythmia, we changing your atenolol to metoprolol and starting a blood thinner medication (Eliquis). These new prescriptions have been sent to your pharmacy. Lastly, please follow up with your PCP in 5-7 days following this hospital discharge. Pending Studies at Discharge: No Stand-Alone Forms: My [facility], Smoking Cessation Medications and DC Order Prescriptions: New metoprolol succinate 50 mg tablet extended release 24 hr 50 mg PO DAILY Qty: 30 0RF Eliquis 5 mg tablet 5 mg PO BID 30 Days Qty: 60 0RF Continued Jardiance 10 mg tablet 10 mg PO DAILY pravastatin 10 mg tablet 10 mg PO PM gabapentin 100 mg capsule 100 mg PO BID amlodipine 5 mg tablet 2.5 mg PO BID glipizide [Glucotrol XL] 10 mg tablet extended release 24hr 10 mg PO BID sertraline [Zoloft] 100 mg tablet 100 mg PO DAILY alfuzosin [Uroxatral] 10 mg tablet extended release 24 hr 10 mg PO PM cholecalciferol (vitamin D3) 1,250 mcg (50,000 unit) capsule 50,000 unit PO WK metformin 750 mg tablet extended release 24 hr 750 mg PO BID losartan 50 mg tablet 50 mg PO DIRECTED Rx Instructions: pt states he takes 50mg daily but its prescribed 100mg daily aspirin 81 mg Tablet,Chewable 81 mg PO DAILY Discontinued atenolol [Tenormin] 50 mg tablet 50 mg PO QAM Discharge Orders: Discharge Order (Routine); Ordered 02/26/24 Ordered By: Catalina Vigil Admission Data Admit Date/Time: 02/25/24 02:10 Attending Provider: Nando Ruff Admit Provider: Jarrod Mckee Primary Care Provider: Kailyn Donovan Other Providers: Alin Hernandez; Matt Mcgee Other Interventions: Discharge Summary Assessment (RN) Last Done: 02/26/24 13:45 Supervising Physician Co-Signing Physician Notes I personally examined the patient and verified all ocampo points of history and exam, discussed case, and agree with decision making with Dr Vigil Feels good. Feels up to going home. Discussed with cardiologyinput greatly appreciated. vitals noted nad heent nc at mmm breathing unlabored no accessory muscles good effort skin no rashes no pallor or icterus afib/flutter/RVR - now converted to NSR. beta saadia, anticoagulation. Saf e/stable for home ST depressions/elevated troponin - demand ischemia while tachycardic. With reassuring echo and no exertional symptoms, and no ischemic symptoms while he was tachycardic, appreciate cardiology's input that fortunately cardiac cath is not warranted at this time. otherwise as above Resident Activity Tracking Resident Involvement: Resident Care Provided Care Provided: Adult Hospital Medicine
--- NOTE | 2024-02-26 12:45 | Communication Note ---
Date of Service: February 26, 2024 By CMS guidelines, a determination that the admission or continued stay is not medically necessary has been made by a member of the UR committee and sarahi altman for this hospital stay, therefore a Code 44 will be completed and the Inpatient admission will be changed to outpatient.
--- NOTE | 2024-02-26 12:45 | Communication Note ---
Date of Service: February 26, 2024 By CMS guidelines, a determination that the admission or continued stay is not medically necessary has been made by a member of the UR committee and a physician for this hospital stay, therefore a Code 44 will be completed and the Inpatient admission will be changed to outpatient.
--- NOTE | 2024-02-26 12:54 | Cardiology Consultation ---
Date of Consultation February 26, 2024 Assessment & Plan (1) Atrial dysrhythmia: -Rhythm on presentation was atrial fibrillation with a rapid ventricular response. -Rhythm on initial twelve-lead EKG was either atrial flutter or an atrial tachycardia. -Converted to normal sinus rhythm after intravenous metoprolol. -Would follow rate control and long-term anticoagulation strategy. (2) Elevated troponin: -Likely a supply demand mismatch. -He never experienced chest discomfort. -Cardiac catheterization not indicated at this time. (3) Hypertension: -Adequate control currently. -Borderline LVH on echocardiogram. (4) Hypercholesterolemia: -Continue pravastatin. History of Present Illness Attending Physician: Nando Ruff DO History of Present Illness Mr. Kwong is a 68-year-old male admitted yesterday with new onset atrial fibrillation with a rapid ventricular response. This consultation was ordered to assist in his cardiac management. The patient was in his usual state of health until approximately 4 days prior to presentation. He was noticing significant fatigue. On the day of presentation, the patient was noticing significant palpitations starting at approximately 8 PM. On arrival here, the monitoring and evaluation advisor notes atrial fibrillation with a rapid ventricular response. However, his initial twelve-lead ECG notes either atrial flutter or an atrial tachycardia. It is stated in the record that his rhythm returned to sinus after a dose of intravenous metoprolol. Uncertain how long following the intravenous metoprolol that the cardioversion occurred. At no time did the patient experience chest discomfort. The patient has never known of an atrial dysrhythmia previously. The patient is very active on a daily basis caring for his home and property. He has never experienced exertional chest pain or limiting dyspnea. He further denies syncope, presyncope, PND, orthopnea, lower extremity edema, and claudication. Currently, patient is resting comfortably in bed and without complaints. Past medical and surgical history 1. Hypertension 2. Hypercholesterolemia 3. Diabetes mellitus 4. Hypothyroidism 5. Anxiety/depression 6. BPH 7. Carpal tunnel release 8. Laparoscopic cholecystectomy 9. Numerous skin cancers Social history , lives alone No tobacco or alcohol Family history No early coronary artery disease Review of systems A 10 point review of systems was undertaken and negative except for that described above. Allergies Allergy/AdvReac Type Severity Reaction Status Date / Time lisinopril Allergy Severe ANGIOEDEMA Unverified 01/30/24 13:05 Sulfa (Sulfonamide Allergy Unknown HAIRY Unverified 01/30/24 13:05 Antibiotics) BROWN TONGUE Home Medications Medication Instructions Recorded Confirmed Type alfuzosin 10 mg tablet,extended 10 mg PO PM 04/20/18 02/25/24 History release 24 hr (Uroxatral) atenolol 50 mg tablet (Tenormin) 50 mg PO QAM 04/20/18 02/25/24 History glipizide 10 mg tablet, extended 10 mg PO BID 04/20/18 02/25/24 History release 24 hr (Glucotrol XL) sertraline 100 mg tablet (Zoloft) 100 mg PO DAILY 04/20/18 02/25/24 History amlodipine 5 mg tablet 2.5 mg PO BID 03/28/23 02/25/24 History empagliflozin 10 mg tablet 10 mg PO DAILY 03/28/23 02/25/24 History (Jardiance) gabapentin 100 mg capsule 100 mg PO BID 03/28/23 02/25/24 History pravastatin 10 mg tablet 10 mg PO PM 03/28/23 02/25/24 History aspirin 81 mg chewable tablet 81 mg PO DAILY 02/25/24 02/25/24 History cholecalciferol (vitamin D3) 1,250 50,000 unit PO WK 02/25/24 02/25/24 History mcg (50,000 unit) capsule losartan 50 mg tablet 50 mg PO DIRECTED 02/25/24 02/25/24 History metformin 750 mg tablet,extended 750 mg PO BID 02/25/24 02/25/24 History release 24 hr apixaban 5 mg tablet (Eliquis) 5 mg PO BID 30 days #60 tabs 02/26/24 Rx metoprolol succinate 50 mg 50 mg PO DAILY #30 tabs 02/26/24 Rx tablet,extended release 24 hr Patient History Surgical History (Updated 12/01/21 @ 16:05 by Livier Flores RN) Status post Mohs surgery for basal cell carcinoma 1999 Carpal tunnel syndrome 2001 History of laparoscopic cholecystectomy 1976 Family History (Updated 12/01/21 @ 16:01 by Livier Flores RN) Mother Hypertension Father No problems noted. Social History (Updated 12/01/21 @ 15:33 by Liiver Flores RN) Smoking Status: Never smoker Hx Alcohol Use: No Hx Substance Use: No Preferred Language: Cook Islander Communication Ability: Effective Graphics Coordinator Required: No Beliefs That Will Affect Care: None marital status: / Current Living Situation: Alone current occupational status: retired How many Children do You have: 1 Other Information That Helps Us Care for You: No Feels Safe at Home: Yes Safety Concerns: Feels Safe At This Time Diet: diabetic during the past year weight has: decreased > 10 lbs Assistive Devices: None Physical Exam Physical Exam: In general this is a well-developed well-nourished white male in no acute distress. HEENT notes a well-healed incision at the apex of the scalp. Neck reveals normal carotid upstrokes without bruits. Jugular venous pressure is flat at 90. There is no thyromegaly. Cardiovascular exam reveals a regular rhythm with a normal S1 and S2. No S3, S4, or murmurs are noted. Lungs are clear without rales, rhonchi, or wheezes. Abdomen is soft without bruits. Extremities reveal intact radial artery and posterior tibial pulses bilaterally. There is no peripheral edema. Results & Data Vital Signs (Past 12 Hours) Vital Signs Temp Pulse Resp BP Pulse Ox Pulse Ox O2 Del Method 02/26/24 11:46 Room Air 02/26/24 11:16 36.6 C 72 18 132/65 97 Room Air 02/26/24 08:00 36.6 C 54 L 18 161/83 H 98 Room Air 02/26/24 03:38 36.6 C 67 20 175/89 H 96 Room Air 02/26/24 03:31 97 O2 Del Method 02/26/24 11:46 02/26/24 11:16 02/26/24 08:00 02/26/24 03:38 02/26/24 03:31 Room Air Laboratory Results CBC and PRP are unremarkable. Initial high-sensitivity troponin was 172 with follow-up values of 315, 618, and 553. TSH is normal at 4.05. Diagnostic Findings Echocardiogram notes normal left ventricular systolic function with ejection fraction of 55 to 60%. There was borderline LVH and mild mitral digitation. Initial EKG noted either atrial flutter or atrial tachycardia. There were diffuse ST segment changes. Follow-up tracing noted sinus rhythm with a V1V3 lead reversal. PG Care Time/CCT Total # of Minutes Spent Total Time Spent with Patient: Total time spent is greater than 50% in coordination of care (as documented) at patient's floor/unit and/or counseling patient: Coding Level of Care Code 67231 INT INP/OBS CARE MIN Diagnoses Atrial dysrhythmia I49.8 Elevated troponin R79.89 Hypertension I10 Hypertension type: unspecified Hypercholesterolemia E78.00 (3) Hypertension Hypertension type: unspecified Qualified Code(s): I10 - Essential (primary) hypertension
[2024-02-26 13:47] VITALS: BP 154/81
--- NOTE | 2024-02-26 14:42 | Billing Data ---
Date of Service February 26, 2024 Coding Level of Care Code 11086 IN/OBS DISCH 30 MIN/LESS
--- NOTE | 2024-02-28 16:15 | Electrocardiogram Report ---
Test Reason : Blood Pressure : */* mmHG Vent. Rate : 88 BPM Atrial Rate : 88 BPM P-R Int : 174 ms QRS Dur : 90 ms QT Int : 340 ms P-R-T Axes : 55 49 29 degrees QTcB Int : 411 ms Normal sinus rhythm Normal ECG When compared with ECG of 24-Feb-2024 22:59, OR interval has increased Vent. rate has decreased by [address] no longer depressed in Inferior leads ST no longer depressed in Anterolateral leads T wave inversion no longer evident in Inferior leads T wave inversion no longer evident in Anterolateral leads Confirmed by Osbaldo Giraldo ([id number]) on 02/28/2024 4:14:48 PM Referred By: REFERRED SELF Confirmed By: Osbaldo Giraldo
== END 2024-02-26 14:09 | disposition home or self-care (01) | DRG 309 ==
LOC: ED 22:51 → 2S 02-25 02:10 → INTOOBSV 02-25 02:10 → SUATTDRO 02-25 02:10 → 2S 02-25 02:33